=== PATIENT | female | born 1950 | race Caucasian/White ===

== ENCOUNTER 2017-02-17 11:24 | Inpatient (IN) | payer MEDICARE ==
[~2017-02-17] VITALS: Ht 162.6 cm; Wt 91.5 kg
[2017-02-17] VITALS (11 sets, daily range): BP systolic 132–187; BP diastolic 64–116; PULSE 74–148; RESP 12–21; O2SAT 96–99
--- NOTE | 2017-02-17 12:21 | ED.REPORT ---
HPI-Chest Pain 40 and Over Date of Service Feb 17, 2017 ED Provider: Luis Antonio Godoy MD 67 y/o female with a hx of hypertension and alcohol abuse presents to the ED due to tachycardia discovered at a PCP appointment today. The patient had an appointment with her PCP Dr. Jimenez at [facility] today who advised her to go to the emergency department because of her tachycardia. They performed an EKG which showed atrial fib/flutter. The patient has no known history of atrial fibrillation or flutter. She is asymptomatic at this time and specifically denies chest pain, shortness of breath, and heart palpitations. As per the pt's friend, the pt is an alcoholic and has not been taking her medications. She has also not left her house for a few days. She states she takes one medication but does not know what it is or what it is for. This was her first appointment with this PCP. Nursing Notes Stated Complaint: POSS HIGH BLOOD PRESSURE/HEART RATE Chief Complaint: Dysrhythmia/Cardiac Nursing Notes Reviewed: Yes Allergies: Coded Allergies: codeine (Verified Allergy, Mild, ITCH, 02/17/17) Scheduled Citalopram (Citalopram) 20 Mg Tablet 20 MG PO DAILY Lisinopril (Lisinopril) 40 Mg Tablet 40 MG PO DAILY General Time Seen by MD: 12:20 Chief Complaint Other (Sent in by her PCP for tachycardia) Hx Obtained From: Patient Arrived By: Walk-in Sudden in Onset?: No Onset Occurred: Onset unknown Severity: Current: No pain currently Severity: Maximum: No pain Recent Healthcare: Recent doctor visit Similar Sx Previous: No Past Medical History Past Medical History Right breast calcification Benign colon polyp Past Surgical History Endoscopy Smoking History Unknown if Ever Smoker Social History Alcohol abuse per her friends Other Social History: Good social support Ambulatory Status Independent Review of Systems Respiratory: Denies: Shortness of breath Cardiovascular: Denies: Chest pain, Palpitations Complete sys rev & neg: except as marked. Physical Exam Initial Vital Signs Vital Signs (First) Date Time Temp Pulse Resp B/P Pulse Ox O2 Delivery O2 Flow Rate FiO2 02/17/17 11:47 36.6 148 16 187/116 97 Room Air Initial VS: Reviewed, Vital signs abnormal Head / Eyes: Atraumatic, Normocephalic, PERRL ENT: Mucous membranes moist, Conjunctiva normal, No scleral icterus Neck: Supple, Full range of motion Extremities: Vascular intact, Neuro intact, No swelling, No tenderness Skin: Warm, Dry, No cyanosis Neurologic: Alert, Oriented, Nonfocal Psychiatric: Mood/affect normal, Behavior normal, Normal thought content General/Constitutional: Awake, Alert, No acute distress, Well appearing, Cooperative, Not toxic appearing Respiratory / Chest: Atraumatic, Breath sounds NL, Breath sounds = bilat, No respiratory distress, No rales, No rhonchi, No wheezing, No retractions Cardiovascular: Regular rhythm, Heart sounds NL, No murmurs Heart Rate / Rhythm: Positive: Tachycardia No lower extremity edema. Abdomen: Atraumatic, Soft, Non-tender Interpretation & Diagnostics Lab Results Interpretation Result Diagram: 02/17/17 1220 02/17/17 1220 Test 02/17/17 12:20 White Blood Count 5.1th/mm3 (3.8-10.1) Red Blood Count 3.05mil/mm3 (3.90-5.20) Hemoglobin 11.7g/dL (12.0-15.6) Hematocrit 34.7% (35.0-46.0) Mean Corpuscular Volume 113.8fL (81-100) Mean Corpuscular Hemoglobin 38.4pg (27.0-35.0) Mean Corpuscular Hemoglobin Concent 33.7% (32.0-37.0) Red Cell Distribution Width 13.6% (12.3-15.4) Platelet Count 168bil/L (150-400) Neutrophils (%) (Auto) 63.4% (40-74) Lymphocytes (%) (Auto) 18.8% (14-46) Monocytes (%) (Auto) 14.2% (4-12) Eosinophils (%) (Auto) 0.8% (0-5) Basophils (%) (Auto) 1.2% (0-3) D-Dimer 0.69mg/L FEU (<0.50) Sodium Level 142mEq/L (134-144) Potassium Level 3.9mEq/L (3.5-5.2) Chloride Level 101mEq/L (97-108) Carbon Dioxide Level 22mmol/L (18-29) Blood Urea Nitrogen 16mg/dL (8-27) Creatinine 0.68mg/dL (0.57-1.00) Estimat Glomerular Filtration Rate 123mL/min (>59) Glucose Level 130mg/dL (60-99) Calcium Level 9.7mg/dL (8.5-10.1) Magnesium Level 1.0mg/dL (1.6-2.6) Total Bilirubin 0.6mg/dL (0.0-1.2) Aspartate Amino Transf (AST/SGOT) 189U/L (0-50) Alanine Aminotransferase (ALT/SGPT) 131U/L (0-32) Alkaline Phosphatase 96U/L (25-165) Troponin T < 0.010ug/L (0.0-0.011) Total Protein 7.1g/dL (6.4-8.4) Albumin 4.4g/dL (3.4-5.0) ECG Interpretation ECG Interpretation: Atrial fibrillation with RVR, Rate 148 Time: 12:08 Interpreted by: ED physician Normal ECG Interpretation: No acute ischemic changes X-Ray Chest Interpretation Chest Xray Interpretation: IMPRESSION: No acute process. Dictated by: Deysi Kelley M.D. on 02/17/2017 at 13:36 Approved by: Deysi Kelley M.D. on 02/17/2017 at 13:36 View: Portable, 1 view Interpretation / Wet Read by: Interpret - Radiologist CT Chest Interpretation IMPRESSION: 1. No pulmonary emboli. 2. No acute cardiopulmonary process is evident. No pneumonia. 3. Mild prominence of the wall the distal esophagus may be exaggerated by incomplete distention. However, in the correct clinical setting, this may represent mild distal esophagitis related to a small hiatal hernia. 4. Cholelithiasis. The common bile duct is enlarged, measuring up to 10 mm in diameter. The need for MRCP to better evaluate the common bile duct may be determined clinically. 5. 1.1 cm distal splenic artery aneurysm is of doubtful significance. Dictated by: Justo Simms M.D. on 02/17/2017 at 13:29 Approved by: Justo Simms M.D. on 02/17/2017 at 13:42 Study type: CT pulm angiogram Interpretation / Wet Read by: Interpret - Radiologist Re-Eval/Medical Decision Med Decision/Clinical Course 67-year-old female history of alcohol abuse presenting with atrial fibrillation with RVR. She drinks 2-3 vodkas a day. He goes through 1 pint every 3 days. Was sent over by primary doctor for rapid heart rate. She is found to be in atrial flutter with RVR 150s. She was given several doses of diltiazem which improved her heart rate to 120s. She required a diltiazem drip to stabilize her heart rate less than 110. D-dimer was elevated. CT Angio chest showed no PE but did show common bile duct dilatation 10 mm. She has no LFT elevation or abdominal pain. We will admit to hospitalist service, PCC for diltiazem drip. She also has no known history of atrial fibrillation therefore this is a new diagnosis. I did not cardiovert her as she is not on anticoagulation and unclear how long she has been in atrial fibrillation as she reports being asymptomatic. Source of Hx: Old records Time of Eval: 15:16 Re-Evaluation/Progress Note: Pt rechecked. Pt informed of need for admission. Pt understands and agrees with plan for admission. All questions addressed. Consultation : Referral / Consult Name: Nick Coleman MD Consulted With: Hospitalist Call Returned at: 16:23 Grinder Gear: Will see patient, Agrees with eval, Agrees with plan, Accepts admit Counseled Regarding: Diagnosis, Lab results, Need for admission Discharge & Departure Primary Impression: Atrial fibrillation with RVR Additional Impressions: Hypomagnesemia Alcohol abuse Cholelithiasis Splenic artery aneurysm Disposition: ADMITTED TO HOSPITAL Discharge Condition All VS Reviewed: Yes Condition: Stable Referrals: Reji Jimenez DO Crit Care Except Billable Proc Time Spent: 75-104 minutes Services Performed: Patient management by me, Time spent at bedside, Reviewing test results, Reviewing imaging, Discussing patient care, Documentation in record Critical Care Notes: See MDM. 90 minutes critical care. Scribe Attestation Portions of this note were transcribed by Lianet Rivera and Jose Luis Mcginnis. I, , personally performed the history, physical exam and medical decision-making;I reviewed and confirmed the accuracy of the information in the transcribed note. Signed by Lianet Rivera and Jose Luis Mcginnis, Scribe. 02/17/17 1500 copies to: Reji Jimenez Ben M MD Feb 17, 2017 12:21 Lianet Rivera Feb 17, 2017 12:28 JOSE LUIS MCGINNIS Feb 17, 2017 15:07
[2017-02-17] MEDS ORDERED: Diltiazem 5 mg/mL 5 mL Inj IVPUSH ONE ×2 (12:30→13:05)
[2017-02-17 12:35] LABS: BASOPHILS % (AUTO) 1.2 % (0-3); EOSINOPHILS % (AUTO) 0.8 % (0-5); MONOCYTES % (AUTO) 14.2 % (4-12); Mean Corpuscular Hemoglobin 38.4 pg (27.0-35.0); Mean Corpuscular Volume 113.8 fL (81-100); NEUTROPHILS % (AUTO) 63.4 % (40-74); Platelet Count 168 bil/L (150-400)
[2017-02-17] MEDS ORDERED: 0.9% Sodium Chloride 1,000 ML IV ONE (12:35)
[2017-02-17 13:19] LABS: TROPONIN T < 0.010 ug/L (0.0-0.011)
--- NOTE | 2017-02-17 13:37 | DRSVH ---
PROCEDURE: X-RAY CHEST ONE VIEW, PORTABLE ([id number]) INDICATIONS: rapid heartrate , chest painy TECHNIQUE: One view of the chest was acquired. COMPARISON: None. FINDINGS: Surgical changes and devices: None. Lungs and pleura: No pleural effusions or pneumothorax. Lungs are clear. Mediastinum: Mediastinal contours appear normal. Heart size is normal. Bones and chest wall: No suspicious bony lesions. Overlying soft tissues appear unremarkable. IMPRESSION: No acute process. Dictated by: Deysi Kelley M.D. on 02/17/2017 at 13:36 Approved by: Deysi Kelley M.D. on 02/17/2017 at 13:36
--- NOTE | 2017-02-17 14:44 | DRSVH ---
PROCEDURE: CT ANGIO CHEST PULMONARY EMBOLISM ([id number]) INDICATIONS: tachycardia elevated ddimer TECHNIQUE: After the administration of intravenous contrast, 2 mm thick sections acquired from the pulmonary api juju to the posterior costophrenic angles. 3-dimensional maximum intensity projection (MIP) coronal a nd sagittal reformats were then acquired through the thorax. For radiation dose reduction, the follo wing was used: automated exposure control, adjustment of mA and/or kV according to patient size. COMPARISON: None. FINDINGS: Image quality: Excellent. Pulmonary arteries: Pulmonary arteries are normal in size, and demonstrate no intraluminal filling d efects to suggest central pulmonary embolism. Lungs and pleura: Expiratory technique does result in difficulty evaluating the lungs for subtle abno rmalities. However, no focal consolidation, effusion, or pneumothorax is evident. There is mild bas ilar atelectasis. There may be scarring within the lung apices and in the inferior margin of the rig ht middle lobe and lingula. No lung masses are identified. Evaluation for pulmonary nodules is limi augie on this exam. No large pulmonary nodules are evident. Mediastinum: Heart size is normal, without pericardial effusion. No mediastinal or hilar adenopathy . Thoracic aorta is normal in caliber and enhancement. Mild prominence of the wall of the distal es ophagus is present. There is a small hiatal hernia. Coronary artery atherosclerosis is present. Th ere also is aortic atherosclerosis. Bones and chest wall: No suspicious bony lesions. Ribs and thoracic spine appear intact throughout. Thyroid gland is not adequately evaluated. No axillary or supraclavicular adenopathy. Abdomen: Included portions of the upper abdomen demonstrate a 1.1 cm saccular-type splenic artery ane urysm within the region of the splenic hilum (image 120, series 5), which is peripherally calcified. Additional enlargement of the distal splenic artery also is noted (image 131, series 5). Numerous ga llstones are present within the gallbladder. There is enlargement of the common bile duct, measuring up to 10 mm in diameter. The liver has a somewhat nodular appearance to the surface, not adequately evaluated. There is slight prominence of the left adrenal gland without a focal nodule. IMPRESSION: 1. No pulmonary emboli. 2. No acute cardiopulmonary process is evident. No pneumonia. 3. Mild prominence of the wall the distal esophagus may be exaggerated by incomplete distention. Ho wever, in the correct clinical setting, this may represent mild distal esophagitis related to a small hiatal hernia. 4. Cholelithiasis. The common bile duct is enlarged, measuring up to 10 mm in diameter. The need f or MRCP to better evaluate the common bile duct may be determined clinically. 5. 1.1 cm distal splenic artery aneurysm is of doubtful significance. Dictated by: Justo Simms M.D. on 02/17/2017 at 13:29 Approved by: Justo Simms M.D. on 02/17/2017 at 13:42
[2017-02-17] MEDS ORDERED: Diltiazem Inj 125 MG in Dextrose 5% 100 ML IV SCH (14:52)
--- NOTE | 2017-02-17 15:48 | NUR ---
MEDREC Pt does not know what medications she takes, stating "i just open cupboards and whatever is there, i take it". Her friend has offered to go home and bring pill containers. Per friends, pt also has an alcohol problem and most likely does not taker her medications regularly, as prescribed. Please complete medrec when pt's friend returns with pills or call "Admit Nurse" on [employer].
[2017-02-17] MEDS ORDERED: Ondansetron 2 mg/mL 2 mL Inj IVPUSH PRN ×2 (16:25→18:40)
[2017-02-17] MEDS ORDERED: Alum-Mag Hydrox-Simeth 30 mL Suspension PO PRN ×2 (16:25→18:40)
[2017-02-17] MEDS ORDERED: Magnesium Sulf 4 Gm/100 mL H2O 4 GM in IV Premix 1 EACH IV ONE (16:30)
[2017-02-17] MEDS ORDERED: CITA20TA11 PO (16:56)
[2017-02-17] MEDS ORDERED: LISI40TA PO (16:56)
[2017-02-17] MEDS ORDERED: [UNRECOGNIZED DRUG - CODE] PO (18:36)
[2017-02-17] MEDS ORDERED: METF500T4 PO (18:37)
[2017-02-17] MEDS ORDERED: FISH1CAP15 PO (18:38)
[2017-02-17] MEDS ORDERED: Diltiazem CD 120 mg ER24 Capsule PO ONE (18:40)
[2017-02-17] MEDS ORDERED: Polyethylene Glycol (PEG) 17 Gm Powder PO PRN (18:40)
[2017-02-17] MEDS: Diltiazem Inj 125 MG in 0.9% Sodium Chloride 100 ML, Pharmacy To Mix 1 EA IV SCH ×2 (18:40→23:51)
[2017-02-17] MEDS ORDERED: Glucose 40% Oral Gel 15 Gm Tube PO PRN (18:40)
--- NOTE | 2017-02-17 18:54 | PCM.HPMED ---
Subjective Date of Service Feb 17, 2017 Primary Provider: Admitting Physician: Nick Coleman MD Primary Care Physician: Reji Jimenez DO Attending Physician: Nick Coleman MD Admit Status: From the Emergency Department, 23-Hour Observation, Admit to [facility], [facility] Telemetry Chief Complaint: Palpitations, atrial fibrillation with rapid ventricular response History of Present Illness: This is a 1-year-old woman with history of alcohol abuse who is having palpitations and some cognitive decline. She presented to her doctor's office was found to be in atrial fibrillation with RVR. She was sent to the ER. She does know what year it is but since April. She denies recent falls or trauma or injury to her head. She has been living alone for about the last year since her was placed in an assisted living facility. Her friend attest that she sees her house in quite a bit of disarray and that the patient fact walks very little. She is also drinking vodka probably up to a half a fifth every day. She is now routinely drinking vodka with some mornings as well. The patient denied this to me but does note that she drinks on a daily basis. She also denies a history of withdrawal but her neighbor notes that she does get the shakes and sometimes throws up. Any chest pain. She also denies any role change of her breathing other than some mild dyspnea on exertion. She does have mild pedal edema but this is not new. She has no clear cardiac history. In fact she denies any medical history over friend brings in lisinopril, citalopram, and metformin as well as hydrocodone. The patient denies taking blood pressure or diabetes medications or having these problems. Review of Systems: She denies headache, visual changes. She does note some memory problems. No neck or back pain. No difficulty with diarrhea constipation blood proctectomy matured history of fevers or chills. Also reviewed and otherwise negative except as noted in history of present illness. Allergies Coded Allergies: codeine (Verified Allergy, Mild, ITCH, 02/17/17) Home Medications Lisinopril 40 mg daily, metformin 500 mg twice a day, hydrocodone when necessary , citalopram 20 mg daily. Metformin looks like it was filled last a year ago. PMH She denies any past medical history. Past medical history includes 1 alcohol abuse and dependence 2. Probable diabetes mellitus 2 3. Hypertension 4. Possible depression Surgical History Unknown Family History She can not provide Social History Hx Alcohol Use: Yes Alcoholic Drinks Per Day: vodka daily, hx of w/drawal s-ms Hx Substance Use: No (denies) Smoking Status: Unknown if Ever Smoker Living Arrangement: Alone Exam Vital Signs Vital Sign - Last Date Time Temp Pulse Resp B/P Pulse Ox O2 Delivery O2 Flow Rate FiO2 02/17/17 18:37 36.6 105 21 146/64 97 Room Air [address] and year but not month. No distress. Fluent speech. Normal affect. Normal skull. Normal nose and ears. Anicteric sclera, symmetric pupils Oropharynx is unremarkable, no facial droop. Neck is supple, normal thyroid. No adenopathy. Lungs are clear, normal effort rate. Heart is irregular without murmur gallop or rub. She is tachycardic with a rate in the 120s Abdomen soft, nondistended or tender. Extremities are free of pedal edema. Good radial and pedal pulses. Skin is free of rash, lesions. No petechiae or ecchymosis. Joints are grossly normal. Cranial nerves are grossly normal. Motor strength is normal in all extremities. Normal muscular tone. Lab and Diagnostics Result Diagram: 02/17/17 1220 02/17/17 1220 X-Rays, CTs and MRIs CT chest angiogram is basically negative. Chest x-ray was unremarkable. Assessment & Plan 1. Atrial fibrillation with rapid ventricular response, POA. Diltiazem drip with an oral load. We will start aspirin. 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 2. Alcohol dependence and abuse, POA. She appears to be at high risk for withdrawal. We will place her on that I will call call protocol with thiamine repletion. 3. Probable untreated hypertension, POA. Resume lisinopril at 20 mg a day and then titrated up. 4. Probable diabetes mellitus 2, with medication noncompliance. POA. Partial lispro, A1c. The patient is full resuscitation this was discussed today she is also intubation for level of care. She is admitted observation status at this point with 1 night stay anticipated. This may change given her probability or possibility of alcoholic fall. Pain Evaluation: Adequate Pain Control Resuscitation Status: CPR: Attempt Resuscitation Time spent 40 minutes Nick Coleman MD Feb 17, 2017 18:54
[2017-02-17] MEDS: 0.9% Sodium Chloride 1,000 ML IV SCH (19:34)
[2017-02-17] MEDS: Heparin 5,000 Unit/mL Inj SUBQ SCH (20:45)
[2017-02-17] MEDS: Multivit-Miner-Folic Acid-Iron Tablet PO SCH (20:46)
[2017-02-17] MEDS: Insulin LISPRO 300 Unit/3 mL Inj SUBQ SCH (22:00)
[2017-02-18] MEDS: Heparin 5,000 Unit/mL Inj SUBQ SCH ×3 (00:30→16:35)
[2017-02-18 02:58] LABS: BASOPHILS % (AUTO) 0.9 % (0-3); EOSINOPHILS % (AUTO) 4.5 % (0-5); MONOCYTES % (AUTO) 15.3 % (4-12); Mean Corpuscular Hemoglobin 37.9 pg (27.0-35.0); Mean Corpuscular Volume 115.4 fL (81-100); NEUTROPHILS % (AUTO) 40.8 % (40-74); Platelet Count 145 bil/L (150-400)
[2017-02-18 03:17] VITALS: BP 111/68; PULSE 64; RESP 13; O2SAT 98
[2017-02-18] MEDS: 0.9% Sodium Chloride 1,000 ML IV SCH ×2 (05:38→14:40)
[2017-02-18 07:52] VITALS: PULSE 71
[2017-02-18] MEDS: Insulin LISPRO 300 Unit/3 mL Inj SUBQ SCH (08:00)
[2017-02-18 08:20] VITALS: BP 148/76; PULSE 86; RESP 17; O2SAT 98
[2017-02-18] MEDS: Multivit-Miner-Folic Acid-Iron Tablet PO SCH (08:35)
[2017-02-18] MEDS: Thiamine Inj 100 MG in 0.9% Sodium Chloride 100 ML IV SCH (08:39)
[2017-02-18] MEDS ORDERED: Diltiazem CD 180 mg ER24 Capsule PO ONE (10:15)
--- NOTE | 2017-02-18 10:15 | PCM.PNMED ---
Subjective Date of Service Feb 18, 2017 Subjective No chest pain, palpitations, or dyspnea. No nausea, diarrhea or abdominal pain. No confusion. Mildly shaky. No anxiety. Some diaphoresis. Exam Vital Signs Vital Sign - Last Date Time Temp Pulse Resp B/P Pulse Ox O2 Delivery O2 Flow Rate FiO2 02/18/17 08:20 37.1 86 17 148/76 98 Room Air 02/17/17 18:37 3 Intake and Output 02/17/17 02/17/17 02/18/17 Cumulative From/Thru 15:00 23:00 07:00 02/17/17 11:47 - 02/18/17 06:48 Intake Total 1000 ml 95 ml 1392 ml 2487 ml Output Total 975 ml 975 ml Balance 1000 ml 95 ml 417 ml 1512 ml Intake Oral 200 ml 200 ml IV Total 1000 ml 95 ml 1192 ml 2287 ml Output Urine Total 975 ml 975 ml # Voids 2 2 Exam Alert and oriented -3, no distress. Fluent speech Anicteric sclera. Lungs are clear with normal rate and effort Heart is irregular without murmur gallop or rub Abdomen soft nontender, flat Extremities are free of edema. Skin is free of rash or lesions. Mild tremor IVs and Medications Medications Reviewed: Medications were reviewed in detail Lab and Diagnostics Result Diagram: 02/18/17 0241 02/18/17 0241 X-Rays, CTs and MRIs CT chest angiogram is basically negative. Chest x-ray was unremarkable. Assessment & Plan 1. Atrial fibrillation with rapid ventricular response, POA. Diltiazem drip with an oral load. We will start aspirin. 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 We will increase her dose of oral diltiazem today and try to wean the drip off. The question here is whether or not she is a candidate for anticoagulants given her history of alcohol abuse and gait instability. We will review her echo discussed with cardiology. We will plan on using a 24 hours to get her rate under control on oral agents. 2. Alcohol dependence and abuse, POA. He appears to be going to mild to moderate alcohol withdrawal. She is mostly manifesting with diaphoresis and tremor. We will continue to observe and use the alcohol protocol. 3. Probable untreated hypertension, POA. Resume lisinopril at 20 mg a day and then titrated up. 4. Probable diabetes mellitus 2, with medication noncompliance. POA. Her A1c is actually 4.8. We will discontinue her insulin at this time. The patient is full resuscitation this was discussed today she is also intubation for level of care. We will require longer than 2 nights will make her inpatient status at this point. Resuscitation Status: CPR: Attempt Resuscitation Nick Coleman MD Feb 18, 2017 10:15
--- NOTE | 2017-02-18 10:22 | NUR ---
Case Management: [facility] delivered and charted @ 1005. Signed original placed in chart. Copy left at bedside. Berenice Wilkins RN
--- NOTE | 2017-02-18 10:44 | DRSVH ---
[facility] [address] [place] [address] Echocardiogram Report Name: MADELEINE JEROME PStudy Date: Height: 64 in Hospital Exam Location: [facility] Weight: 419 lb Gender: Female BSA: 2.7 m2 : 1950 Age: 67 yrs BP: 111/68 mmHg Reason For Study: AFIB Ordering Physician: HOSPITALIST LATHAerformed By: Ghassan العلي Referring Physician: Noel WILLINGHAM Interpretation Summary The patient was in atrial fibrillation with controlled ventricular rate during the exam. Normal left ventricle size with ejection fraction 60-65%. Mildly dilated left atrium. Moderate tricuspid regurgitation. The right ventricular systolic pressure is estimated at 33 mmHg assuming a right atrial pressure of 3 mm Hg. Procedure: A two-dimensional transthoracic echocardiogram with color flow and Doppler was performed. The study quality was technically good. There is no prior echocardiogram noted for this patient. The patient was in atrial fibrillation with controlled ventricular rate during the exam. The patient had a heart rate of 88-97 beats per minute. Left Ventricle: The left ventricle is normal in size. There is normal left ventricular wall thickness. The ejection fraction is estimated to be 60-65%. There are no focal wall motion abnormalities. Diastolic function could not be accurately assessed due to atrial fibrillation. Right Ventricle: The right ventricle is normal in size and function. Atria: The left atrium is mildly dilated. Right atrial size is normal. The interatrial septum is intact with no evidence for an atrial septal defect. Mitral Valve: The mitral valve is normal in structure and function. There is trace mitral regurgitation. Aortic Valve: The aortic valve is normal in structure and function. The aortic valve is trileaflet. The aortic valve opens well. No aortic regurgitation is present. Tricuspid Valve: The tricuspid valve is normal in structure and function. There is moderate tricuspid regurgitation. The right ventricular systolic pressure is estimated at 33 mmHg assuming a right atrial pressure of 3 mm Hg. Pulmonic Valve: The pulmonic valve is not well seen, but is grossly normal. There is no pulmonic valvular regurgitation. Great Vessels: The aortic root is normal size. The dimensions of the ascending aorta are normal. The pulmonary artery is normal size. The IVC is of normal diameter and collapses greater than 50% with a sniff. This suggests a low right atrial pressure of 3 mm Hg. Pericardium/ Pleura There is no pericardial effusion. There is no pleural effusion. MMode/2D Measurements & Calculations LVIDd: 5.1 cm LA dimension: 4.6 cm RA long axis Ao root diam LVIDs: 3.1 cm FS: 38.8 % LA A2 area: 26.4 cm RA area Aortic Jxn: 2.4 cm EPSS: 0.27 cm LA A4 area: 25.9 cm asc Aorta Diam IVSd: 1.1 cm LA length (vol) : 15.1 cm LVPWd: 0.87 cm RA vol Ao Arch Diam (Prox LA vol: 87.6 ml : 38.6 ml Trans): 2.5 cm LA vol index RA : 14.4 mm2 IVC diam: 2.3 cm LV kearns. diameter/BSA LV sys. diameter/BSA (cm/m^2): 1.9 (cm/m^2): 1.2 Doppler Measurements & Calculations Ao V2 max MV E max stevo MV E/A: 256.5 TR max stevo : 134.7 cm/sec : 120.2 cm/sec Med Peak E' Stevo : 275.7 cm/sec Ao max PG MV A max stevo TR max PG : 7.3 mmHg : 0.47 cm/sec E/E' med: 12.1 : 30.4 mmHg Ao mean PG PA V2 max : 4.3 mmHg : 89.2 cm/sec PA mean PG PA Accel Time : 0.10 sec MV dec time Ao V2 mean PA V2 mean : 0.10 sec : 99.0 cm/sec : 67.3 cm/sec Ao V2 VTI: 25.1 cm DANNY pr(Accel) : 31.5 mmHg Electronically signed by: Janell Irby on Reading Physician:02/18/2017 10:43 AM
--- NOTE | 2017-02-18 12:04 | NUR ---
Social Work: Initial Assessment/Chemical Dependency Eval. D: Per EMR review, pt is a 67 year old female admitted for AFIB with RVR. PCP is Reji Jimenez DO. NOK Is Jovanny Mauricio, brother, . Advanced directives not complete- info provided by HISTOTECHNICIAN. Readmit score is 4/8. HISTOTECHNICIAN met with pt at bedside. Sw role explained and contact info provided. See initial assessment. Pt lives on [address] in a single story home with 2 steps to enter. Pt lives alone, and is I with ADLs at baseline. Pt uses crutches at baseline and has no concerns about her ability to ambulate safely with them. Pt has never had HH or skilled rehab. Pt states her friend will transport her home. Pt was placed on CIWA Protocol during admission and reportedly consumed approximately 1/2 a fifth of vodka daily. HISTOTECHNICIAN discussed pt's ETOH consumptions. Pt states that she does drink regularly but does not feel it to be problematic. Pt does not see how large quantities of ETOH can impact her health. Pt states hat she uses ETOH for sleep purposes and that she has never experienced any withdrawal symptoms. Pt declined CD resources from HISTOTECHNICIAN and decline CDP bedside assessment. A: Pt who is I at baseline. P: Anticipate pt to discharge home when medically stable; HISTOTECHNICIAN to continue to follow if needs arise. KEON Camp Addendum: 02/18/17 at 1211 by TELLY KNIGHT SS Amended: Links added.
[2017-02-18 12:18] VITALS: BP 111/69; PULSE 94; RESP 20; O2SAT 98
[2017-02-18 16:13] VITALS: BP 126/82; PULSE 100; RESP 18; O2SAT 99
--- NOTE | 2017-02-18 16:44 | NUR ---
DC Diltiazem Drip/CIWA Pt. has been off diltiazem drip this afternoon at ~1300 after administering 180mg PO diltiazem per MD orders. Pts. HR has been int he 90s-100s with no c/o CP. Pt. also denies SOB. CIWA scores have been 5, 1, and 1 this sift. Pt. has slight trembling of right arm when extended and at times perspiration on Pts. forehead is also noted. Pt. denies anxiety, hearing or seeing things as well as feeling any itchiness or crawling on her skin. Pt. at this time is bed in no apparent distress with family and friends around.
[2017-02-18 21:30] VITALS: BP 126/78; PULSE 96; RESP 18; O2SAT 98
[2017-02-19] VITALS (7 sets, daily range): BP systolic 129–157; BP diastolic 76–90; PULSE 93–129; RESP 13–17; O2SAT 97–100
[2017-02-19] MEDS: 0.9% Sodium Chloride 1,000 ML IV SCH (00:40)
[2017-02-19] MEDS: Heparin 5,000 Unit/mL Inj SUBQ SCH ×2 (00:45→09:40)
--- NOTE | 2017-02-19 05:15 | NUR ---
HEPARIN / CIWA Patient refusing to have heparin sq injections in abdomen; requesting they be injected in the arm. CIWA score 4 for slight tremors.
[2017-02-19 08:11] LABS: Free Thyroxine Index 1.8 (1.2-4.9); Thyroxine (T4) 5.7 ug/dL (4.5-12.0)
[2017-02-19] MEDS ORDERED: Diltiazem CD 180 mg ER24 Capsule PO SCH (08:30)
[2017-02-19] MEDS: Thiamine Inj 100 MG in 0.9% Sodium Chloride 100 ML IV SCH (09:40)
--- NOTE | 2017-02-19 11:49 | PCM.DIMED ---
Discharge Instructions Date of Service Feb 19, 2017 Dates of Hospitalization Feb 17, 2017 at 16:29 Discharge Diagnosis Discharge Diagnosis 1. Atrial fibrillation with rapid ventricular response, improved. 2. Alcohol dependence . 3. Hypertension. Diet Heart Healthy Activity Limited until seen by PCP Call your provider Shortness of breath, Chest pain Patient Instructions Follow-up Provider: Reji Jimenez DO Follow-up with PCP in: 1 week Nick Coleman MD Feb 19, 2017 11:49
[2017-02-19] MEDS ORDERED: RIVA20TA PO (11:54)
[2017-02-19] MEDS ORDERED: DILT240C89 PO (11:54)
[2017-02-19] MEDS ORDERED: MAGN500T PO (12:18)
--- NOTE | 2017-02-19 12:39 | PCM.DC.MED ---
Discharge Summary Date of Service Feb 19, 2017 Dates of Hospitalization Date of Hospital Admission Feb 17, 2017 at 16:29 Date of Discharge: Feb 19, 2017 Providers: Admitting Physician: Diego Zhou MD Primary Care Physician: Reji Jimenez DO Attending Physician: Diego Zhou MD Diagnosis at Time of Discharge Diagnosis at Time of Discharge 1. Atrial fibrillation with rapid ventricular response, improved. 2. Alcohol dependence . 3. Hypertension. Consultations None Procedures XRay, CTs & MRIs CT chest angiogram is basically negative. Chest x-ray was unremarkable. ECG 12 Lead Atrial fibrillation with rapid ventricular response Cardiac Echo Impression Interpretation Summary The patient was in atrial fibrillation with controlled ventricular rate during the exam. Normal left ventricle size with ejection fraction 60-65%. Mildly dilated left atrium. Moderate tricuspid regurgitation. The right ventricular systolic pressure is estimated at 33 mmHg assuming a right atrial pressure of 3 mm Hg. Invasive Procedures None Brief History This is a 1-year-old woman with history of alcohol abuse who is having palpitations and some cognitive decline. She presented to her doctor's office was found to be in atrial fibrillation with RVR. She was sent to the ER. She does know what year it is but since April. She denies recent falls or trauma or injury to her head. She has been living alone for about the last year since her was placed in an assisted living facility. Her friend attest that she sees her house in quite a bit of disarray and that the patient fact walks very little. She is also drinking vodka probably up to a half a fifth every day. She is now routinely drinking vodka with some mornings as well. The patient denied this to me but does note that she drinks on a daily basis. She also denies a history of withdrawal but her neighbor notes that she does get the shakes and sometimes throws up. Any chest pain. She also denies any role change of her breathing other than some mild dyspnea on exertion. She does have mild pedal edema but this is not new. She has no clear cardiac history. In fact she denies any medical history over friend brings in lisinopril, citalopram, and metformin as well as hydrocodone. The patient denies taking blood pressure or diabetes medications or having these problems. Hospital Course 1. Atrial fibrillation with rapid ventricular response, POA. Diltiazem drip with an oral load. We will start aspirin. 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 We will increase her dose of oral diltiazem today and try to wean the drip off. The question here is whether or not she is a candidate for anticoagulants given her history of alcohol abuse and gait instability. We will review her echo discussed with cardiology. We will plan on using a 24 hours to get her rate under control on oral agents. The patient had a fairly unremarkable echo. She was rate controlled with diltiazem drip and then converted to by mouth with reasonable rate control. She was a candidate for anticoagulation based on hypertension and age. The risks and benefits of anticoagulation with her history of alcohol abuse were discussed in detail with her. 2. Alcohol dependence and abuse, POA. He appears to be going to mild to moderate alcohol withdrawal. She is mostly manifesting with diaphoresis and tremor. We will continue to observe and use the alcohol protocol. Importance of alcohol cessation was discussed on a daily basis with her and she does indicate a willingness to stop. 3. Probable untreated hypertension, POA. Resume lisinopril at 20 mg a day and then titrated up. Ultimately diltiazem orally was increased to 40 mg. We will actually stop was sampled the time of discharge and see how her blood pressure fairs with the diltiazem which is primarily being used for rate control. 4. Probable diabetes mellitus 2, with medication noncompliance. POA. Her A1c is actually 4.8. We will discontinue her insulin at this time. Her A1c was less than 5.4. Her blood sugars were normal. She does not have diabetes. The patient is full resuscitation this was discussed today she is also intubation for level of care. We will require longer than 2 nights will make her inpatient status at this point. On the day of discharge the patient is adamant about returning home. She is relatively asymptomatic even with minor minor bursts of tachycardia. She has limited physical activity at home and some social support and is quite adamant about going home today but will follow-up early next week with her primary care provider Exam Vital Signs (Last) Date Time Temp Pulse Resp B/P Pulse Ox O2 Delivery O2 Flow Rate FiO2 02/19/17 11:23 37.0 97 16 142/87 98 Room Air 02/17/17 18:37 3 Exam Patient was seen and examined on the day of discharge Test 02/17/17 12:20 02/18/17 02:41 02/18/17 18:00 D-Dimer 0.69mg/L FEU (<0.50) Hemoglobin A1c 4.8% (4.8-5.6) Troponin T < 0.010ug/L (0.0-0.011) White Blood Count 4.3th/mm3 (3.8-10.1) Red Blood Count 2.72mil/mm3 (3.90-5.20) Hemoglobin 10.3g/dL (12.0-15.6) Hematocrit 31.4% (35.0-46.0) Mean Corpuscular Volume 115.4fL (81-100) Mean Corpuscular Hemoglobin 37.9pg (27.0-35.0) Mean Corpuscular Hemoglobin Concent 32.8% (32.0-37.0) Red Cell Distribution Width 13.6% (12.3-15.4) Platelet Count 145bil/L (150-400) Neutrophils (%) (Auto) 40.8% (40-74) Lymphocytes (%) (Auto) 37.6% (14-46) Monocytes (%) (Auto) 15.3% (4-12) Eosinophils (%) (Auto) 4.5% (0-5) Basophils (%) (Auto) 0.9% (0-3) Sodium Level 143mEq/L (134-144) Potassium Level 3.6mEq/L (3.5-5.2) Chloride Level 104mEq/L (97-108) Carbon Dioxide Level 24mmol/L (18-29) Blood Urea Nitrogen 14mg/dL (8-27) Creatinine 0.59mg/dL (0.57-1.00) Estimat Glomerular Filtration Rate 145mL/min (>59) Glucose Level 107mg/dL (60-99) Calcium Level 9.2mg/dL (8.5-10.1) Magnesium Level 2.0mg/dL (1.6-2.6) Total Bilirubin 0.6mg/dL (0.0-1.2) Aspartate Amino Transf (AST/SGOT) 117U/L (0-50) Alanine Aminotransferase (ALT/SGPT) 96U/L (0-32) Alkaline Phosphatase 79U/L (25-165) Total Protein 5.7g/dL (6.4-8.4) Albumin 3.7g/dL (3.4-5.0) Triglycerides Level 72mg/dL (0-149) Cholesterol Level 175mg/dL (100-199) LDL Cholesterol, Calculated 97.600mg/dL (0-99) VLDL Cholesterol 14.400mg/dL HDL Cholesterol 63mg/dL (>39) Cholesterol/HDL Ratio 2.78 (0.0-4.4) Thyroid Stimulating Hormone (TSH) 0.867uIU/mL (0.450-4.500) Free Thyroxine Index 1.8 (1.2-4.9) Thyroxine (T4) 5.7ug/dL (4.5-12.0) Triiodothyronine (T3) Uptake 31% (24-39) Hold Urine Received (Received) Discharge Medications Discharge Medications Citalopram (Citalopram) 20 Mg Tablet 20 MG PO DAILY (Reported) Diltiazem ER (Diltiazem ER) 240 Mg Cap.er.24h 240 MG PO DAILY Prescribed by: DIEGO ZHOU MD Fish Oil/Dha/Epa (Fish Oil 1,200 mg Fish Oil) 1 Each Capsule 1 EACH PO DAILY ( Reported) Magnesium Oxide (Magnesium Oxide) 500 Mg Tablet 500 MG PO DAILY Prescribed by: DIEGO ZHOU MD Rivaroxaban (Xarelto) 20 Mg Tablet 20 MG PO DAILY Prescribed by: DIEGO ZHOU MD As needed Hydrocodone/Acetaminophen (Lorcet 5-325 mg Tablet) 1 Each Tablet 1-2 EACH PO q4- 6h PRN PRN For Pain (Reported) Followup Plan Disposition: Home Discharge Diet: Heart Healthy Discharge Activity: Limited until seen by PCP Follow-up Provider: Reji Jimenez DO Follow-up with PCP in: 1 week Time spent 45 minutes Diego Zhou MD Feb 19, 2017 12:39
--- NOTE | 2017-02-19 12:42 | PCM.ADCARE ---
Advance Care Planning Note Purpose of Encounter: To discuss broad goals of care as well as resuscitation status. Parties in Attendance: Patient Decisional Capacity: She has decisional capacity Subjective: She is comfortable today, without any pain or other difficulties. She is anticipating discharge home. Objective: No distress with normal vital signs performed clear. Heart is irregular but rate controlled No peripheral edema Goals of Care Determinations: To further determine level of care as well as global goals of healthcare functional status. Plan: 1. The patient's primary goal is to preserve dignity and protein and resume a functional level of independent living. She also seems motivated to pursue alcohol cessation which is the primary problem in her life right now. CODE STATUS: Full resuscitation Intubation for airway support if needed. Full medical treatment for critical illness including ICU level care. Undecided about feeding tube Time Spent Adv.Care Plannin minutes Adv. Care Plan Documenation: As above Nick Coleman MD Feb 19, 2017 12:42
--- NOTE | 2017-02-19 13:20 | NUR ---
Discharge note Patient a/o x 4, denies pain, nausea or sob. Pateint oob amb in room with sba, silvia well. Tele A fib 90's at rest and 140's with activity. Patient asymptomatic with increased HR. IV SL and tele removed intact. Patient given discharge instructions, medication reconciliation, info on diagnosis and new meds and prescriptions. All questions answered. Patient taken to the car in her own wheelchair and belongings and discharged home with friend.
== END 2017-02-19 15:22 | disposition home or self-care (01) | DRG 309 ==
LOC: SED 11:24 → PCC 16:29 → OBSVTOIN 16:29 → INTOOBSV 16:29
PROVIDERS: ADMIT Hospitalist; ATTEND Hospitalist
DX: I48.91 Unspecified atrial fibrillation (principal); F10.239 Alcohol dependence with withdrawal, unspecified; I10 Essential (primary) hypertension; E11.9 Type 2 diabetes mellitus without complications

== ENCOUNTER 2017-03-30 14:15 | Inpatient (IN) | payer MEDICARE ==
[~2017-03-30] VITALS: Ht 162.6 cm; Wt 82.8 kg
[2017-03-30] VITALS (15 sets, daily range): BP systolic 115–158; BP diastolic 57–117; PULSE 93–144; RESP 14–20; O2SAT 94–98
[~2017-03-30 14:15] MED LIST: CITA20TA11 PO; DILT240C89 PO; FISH1CAP15 PO; MAGN500T PO; RIVA20TA PO; [UNRECOGNIZED DRUG - CODE] PO
--- NOTE | 2017-03-30 14:26 | ED.REPORT ---
HPI-Altered Mental Status Date of Service Mar 30, 2017 ED Provider: Dr. Booth Pt is a 67 year old female with a history of post-polio syndrome, A-fib, HTN, and potential DM who presents to the ED via EMS after being found unresponsive after a ground level fall less than 30 minutes ago. The pt was found on the floor after her shower. She was unable to identify who found her on the floor, but reported that she lives with her . The medics found her unresponsive and gave her 4 mg of Narcan, and 6mg (+12 mg) of Adenosine. Her heart rate was found to be in A-flutter with a rate of 180-280 bpm. 20 mg IV of Diltiazem was given, causing her heart rate to drop to 129. When the pt arrived at the ED, her heart rate was at 140. She denies chest pain, SOB, recent illness, and sensation to heart palpations. She admits to alcohol use, but denies drinking today. The pt was unable to identify what medications she takes and denies taking any narcotics, but hydrocodone was brought to the ED as one of her medications. She was recently admitted between February 17-2016 for rapid heart rate and was found to be in A-fib with RvR. She was placed on a diltiazem drip and successfully weaned off of this and discharged with oral Diltiazem. She was thought to NOT be a good candidate for anticoagulation due to her poor gait stability and alcoholism. She is a poor historian. Nursing Notes Stated Complaint: UNRESPONSIVE Chief Complaint: Dysrhythmia/Cardiac Nursing Notes Reviewed: Yes Allergies: Coded Allergies: codeine (Verified Allergy, Mild, ITCH, 03/30/17) Scheduled Aspirin Chew (Aspirin Chew) 81 Mg Chew 81 MG PO DAILY Citalopram (Citalopram) 20 Mg Tablet 20 MG PO DAILY Diltiazem ER (Diltiazem ER) 240 Mg Cap.er.24h 240 MG PO DAILY Doxycycline Hyclate (Doxycycline Hyclate) 20 Mg Tablet 20 MG PO DAILY Magnesium Oxide (Magnesium Oxide) 400 Mg Tablet 400 MG PO DAILY Scheduled PRN Hydrocodone/Acetaminophen (Lorcet 5-325 mg Tablet) 1 Each Tablet 1-2 EACH PO q4- 6h PRN PRN For Pain General Time Seen by MD: 14:25 Chief Complaint Other (Ground level fall) Hx Obtained From: Patient, EMS Arrived By: Ambulance Sudden in Onset?: Yes Onset Occurred: Just prior to arrival Symptom Duration: Duration unknown Severity: Current: No pain currently Severity: Maximum: No pain Recent Healthcare: Recent doctor visit Similar Sx Previous: Yes Past Medical History Past Medical History Right breast calcification Benign colon polyp Post polio syndrome Alcohol abuse and dependence Probable diabetes mellitus 2 - last A1C normal Hypertension Possible depression A-fib with hx of RvR Past Surgical History Endoscopy Smoking History Unknown if Ever Smoker Social History Alcohol abuse Other Social History: Good social support Ambulatory Status Independent Review of Systems Difficult to obtain ROS due to poor historian Respiratory: Denies: Non-productive cough, Shortness of breath Cardiovascular: Denies: Chest pain, Palpitations GI: Denies: Diarrhea, Nausea, Vomiting Neurologic: Reports: Change LOC Complete sys rev & neg: except as marked. Physical Exam Initial Vital Signs Vital Signs (First) Date Time Temp Pulse Resp B/P Pulse Ox O2 Delivery O2 Flow Rate FiO2 03/30/17 14:20 37.3 144 19 148/81 94 Room Air 03/30/17 15:21 1 Initial VS: Reviewed, Vital signs abnormal ENT: Mucous membranes moist, Conjunctiva normal, No scleral icterus Extremities: Vascular intact, Neuro intact Skin: Warm, Dry, No cyanosis Psychiatric: Mood/affect normal, Behavior normal General/Constitutional: Awake, Alert, Cooperative, Not toxic appearing Head / Eyes: Atraumatic, Normocephalic, PERRL, EOMI Neck: Atraumatic, Full range of motion Respiratory / Chest: Atraumatic, Breath sounds NL, Breath sounds = bilat Cardiovascular: Regular rhythm, Heart sounds NL Heart Rate / Rhythm: Positive: Tachycardia Neurologic: Oriented X3, Speech NL, No motor deficits, No sensory deficits Abdomen: Atraumatic, Soft Tenderness/Guarding/Rebound: Positive: Tender RLQ... (Mild) Lower Extremity / Pelvis / MS: Neurologic intact, Vascular intact Ankle / Foot: Neurologic intact, Vascular intact Moderate deformity of the feet with trace edema Interpretation & Diagnostics Right ankle x-ray shows a posterior fracture Lab Results Interpretation Result Diagram: 03/30/17 1525 03/30/17 1525 Test 03/30/17 15:25 White Blood Count 7.1th/mm3 (3.8-10.1) Red Blood Count 3.35mil/mm3 (3.90-5.20) Hemoglobin 12.4g/dL (12.0-15.6) Hematocrit 36.5% (35.0-46.0) Mean Corpuscular Volume 109.0fL (81-100) Mean Corpuscular Hemoglobin 37.0pg (27.0-35.0) Mean Corpuscular Hemoglobin Concent 34.0% (32.0-37.0) Red Cell Distribution Width 13.8% (12.3-15.4) Platelet Count 138bil/L (150-400) Neutrophils (%) (Auto) 91.5% (40-74) Lymphocytes (%) (Auto) 4.4% (14-46) Monocytes (%) (Auto) 3.2% (4-12) Eosinophils (%) (Auto) 0% (0-5) Basophils (%) (Auto) 0.3% (0-3) Sodium Level 137mEq/L (134-144) Potassium Level 4.7mEq/L (3.5-5.2) Chloride Level 98mEq/L (97-108) Carbon Dioxide Level 14mmol/L (18-29) Blood Urea Nitrogen 16mg/dL (8-27) Creatinine 0.58mg/dL (0.57-1.00) Estimat Glomerular Filtration Rate 148mL/min (>59) Glucose Level 152mg/dL (60-99) Calcium Level 8.6mg/dL (8.5-10.1) Magnesium Level 1.5mg/dL (1.6-2.6) Total Bilirubin 1.1mg/dL (0.0-1.2) Aspartate Amino Transf (AST/SGOT) 67U/L (0-50) Alanine Aminotransferase (ALT/SGPT) 35U/L (0-32) Alkaline Phosphatase 107U/L (25-165) Troponin T < 0.010ug/L (0.0-0.011) Total Protein 6.9g/dL (6.4-8.4) Albumin 3.8g/dL (3.4-5.0) Hold [place] Top Tube Received (Received) Alcohols < 10mg/dL (0-10) ECG Interpretation ECG Interpretation: Ectopic atrial tachycardia, unifocal, with a rate of 139 ST depression rate related Time: 14:25 Interpreted by: ED physician X-Ray Chest Interpretation Chest Xray Interpretation: IMPRESSION: Subtle right basilar airspace disease may represent pneumonia versus atelectasis. Please correlate clinically. Dictated by: Justo Simms M.D. on 03/30/2017 at 14:21 View: Portable, 1 view Interpretation / Wet Read by: Interpret - Radiologist X-Ray Interpretation Xray Interpretation: IMPRESSION: 1. Fracture of the distal fibula of uncertain chronicity. Relative absence of soft tissue swelling over the lateral malleolus suggests possible old fracture. Recommend clinical correlation. 2. Fusion of the subtalar joint. 3. Osteopenia. Dictated by: Aniket Jaffe M.D. on 03/30/2017 at 17:40 Study Performed: Minimum 3 views X-Ray Ordered: Ankle right Procedures Splint Application - Fx Mgt Time: 17:52 Procedure Performed by: Building Rental Manager Precise Anatomic Location: Right ankle Type of Immobilization: Ortho-glass Definitive Fracture Care: Splint Post-Procedure / Complications: Cap refill normal, Cap refill abnormal, Post splint vascular nl, Post splint neuro nl Re-Eval/Medical Decision Source of Hx: Old records, EMS Re-Evaluation/Progress #1: Time of Eval: 16:42 )( Re-Eval Neurologic Exam: Alert, Speech normal Re-Evaluation/Progress Note: Pt rechecked. Pt is comfortable and chatty. She is tender and bruised over the right ankle which appear to be older than just today. Will obtain x-ray. Re-Evaluation/Progress #2: Time of Eval: 17:30 )( Re-Eval Neurologic Exam: Alert Re-Evaluation/Progress Note: Pt rechecked. Informed pt of plan for admission. Pt understands and agrees with plan for admission. All questions addressed. Consultation : Referral / Consult Name: Alejandra Reyna DO Consulted With: Hospitalist Call Returned at: 17:26 Cake Icer: Will see patient, Agrees with eval, Agrees with plan, Accepts admit Counseled Regarding: Diagnosis, Lab results, Need for admission Patient Discharge & Departure Impression: Primary Impression: Atrial flutter with rapid ventricular response Additional Impression: Ankle fracture Disposition: ADMITTED TO HOSPITAL Discharge Condition All VS Reviewed: Yes Condition: Stable Referrals: Reji Jimenez DO (PCP) Crit Care Except Billable Proc Time Spent: 30-74 minutes Services Performed: Patient management by me, Time spent at bedside, Reviewing test results, Reviewing imaging, Discussing patient care, Documentation in record Scribe Attestation Portions of this note were transcribed by Jose Luis Mcginnis and Lori Spear. I, Dr. Booth personally performed the history, physical exam and medical decision-making; I reviewed and confirmed the accuracy of the information in the transcribed note. Signed by: Jose Luis Mcginnis and Lori Spear, Mt, 03/30/17 and 15:50. copies to: Reji Jimenez Kirk H MD Mar 30, 2017 14:26 Lori Vázquez Mar 30, 2017 14:36 JOSE LUIS MCGINNIS Mar 30, 2017 15:01
[2017-03-30] MEDS ORDERED: Diltiazem 5 mg/mL 5 mL Inj IVPUSH ONE (14:40)
[2017-03-30] MEDS ORDERED: Ondansetron 2 mg/mL 2 mL Inj ONE (14:47)
--- NOTE | 2017-03-30 15:23 | DRSVH ---
PROCEDURE: X-RAY CHEST ONE VIEW, PORTABLE ([id number]) INDICATIONS: tachcardia TECHNIQUE: One view of the chest was acquired. COMPARISON: [facility], CR, XR CHEST 1VW (PORTABLE), 02/17/2017, 13:02. FINDINGS: Surgical changes and devices: None. Lungs and pleura: There is subtle airspace disease within the right lateral lung, which is new since the prior study. No lobar consolidation, effusion, or pneumothorax is identified. Mediastinum: Mediastinal contours appear normal. Heart size is normal. Bones and chest wall: No suspicious bony lesions. Degenerative changes of the thoracic spine and sh oulders are not well evaluated. Overlying soft tissues appear unremarkable. IMPRESSION: Subtle right basilar airspace disease may represent pneumonia versus atelectasis. Please correlate clinically. Dictated by: Justo Simms M.D. on 03/30/2017 at 14:21 Approved by: Justo Simms M.D. on 03/30/2017 at 14:21
[2017-03-30] MEDS: Diltiazem 125 mg/125 mL D5W IV SCH ×2 (15:24)
[2017-03-30 15:33] LABS: BASOPHILS % (AUTO) 0.3 % (0-3); EOSINOPHILS % (AUTO) 0 % (0-5); MONOCYTES % (AUTO) 3.2 % (4-12); NEUTROPHILS % (AUTO) 91.5 % (40-74); Platelet Count 138 bil/L (150-400)
[2017-03-30 16:12] LABS: TROPONIN T < 0.010 ug/L (0.0-0.011)
[2017-03-30 16:17] LABS: Magnesium 1.5 mg/dL (1.6-2.6)
[2017-03-30] MEDS ORDERED: Ondansetron 2 mg/mL 2 mL Inj IVPUSH PRN ×3 (17:00→18:15)
[2017-03-30] MEDS ORDERED: HYDROcodone-APAP 10-325 mg PO ONE (17:05)
[2017-03-30] MEDS ORDERED: DOXY20TA5 PO (17:26)
[2017-03-30] MEDS ORDERED: ASPI81TA3 PO (17:26)
[2017-03-30] MEDS ORDERED: MAGN400T4 PO (17:26)
--- NOTE | 2017-03-30 17:46 | DRSVH ---
PROCEDURE: X-RAY RIGHT ANKLE, MINIMUM THREE VIEWS ([id number]) INDICATIONS: pain, bruising TECHNIQUE: 3 views of the ankle were acquired. COMPARISON: None. FINDINGS: Bones: There is fracture in the distal fibula of uncertain chronicity. There is fusion of the subtal ar joint. Ankle mortise is normally aligned. No suspicious bony lesions. There is osteopenia. Soft tissues: No tibiotalar joint effusion. Achilles tendon appears normal. IMPRESSION: 1. Fracture of the distal fibula of uncertain chronicity. Relative absence of soft tissue swelling ov er the lateral malleolus suggests possible old fracture. Recommend clinical correlation. 2. Fusion of the subtalar joint. 3. Osteopenia. Dictated by: Aniket Jaffe M.D. on 03/30/2017 at 17:40 Approved by: Aniket Jaffe M.D. on 03/30/2017 at 17:44
[2017-03-30] MEDS ORDERED: Alum-Mag Hydrox-Simeth 30 mL Suspension PO PRN ×2 (17:55→18:15)
[2017-03-30] MEDS ORDERED: Polyethylene Glycol (PEG) 17 Gm Powder PO PRN (18:15)
[2017-03-30] MEDS ORDERED: Labetalol 5 mg/mL 4 mL Inj IVPUSH PRN (18:15)
--- NOTE | 2017-03-30 18:40 | PCM.HPMED ---
Subjective Date of Service Mar 30, 2017 Primary Provider: Admitting Physician: Primary Care Physician: Reji Jimenez DO Attending Physician: Chief Complaint: Unresponsive, fall, a-fib History of Present Illness: 67-year-old female history of atrial fibrillation, postpolio syndrome, and hypertension who was found unresponsive due to ground-level fall around 1400 today. Patient is an unreliable historian. Patient states that her 70 pound dog knocked her over and that she remembers all the events of the fall, EMS arrival, and transport to the hospital, however EMS stated that she was found on the floor after her shower. Patient also states that her ' is one who found her although her does not live with her. Medics administered 4 mg Narcan without response, followed that by 6 mg and then 12 mg of adenosine which allowed EMS to identify a flutter on EKG. Rate at that time was 180-280 bpm. 20 mg of IV diltiazem was given and that brought her heart rate down into the 120s. Patient denies associated review of symptoms. She is unable to recall what season it is, what year it is, where she is, what city she is in, the medications she is taking, who her PCP is, but does remember that Elisabet is the president. Review of home records has a patient being admitted in late January of this year due to A. fib with RVR and was successfully treated with a diltiazem drip and sent home on 240 mg of diltiazem ER. It is unknown she takes medication today and she has not a sufficient historian to confirm this. Her outpatient records also identify her as being on Xarelto due to A. fib although she is a high fall risk due to ambulation issues related to polio. Patient also denied excessive alcohol abuse and interviewed in the emergency department but again, home records indicate that her friends have been concerned about her drinking habits for more than 6 months and report that she consumes more than half of fifth of vodka a day. Review of Systems: Complete review of systems performed; pertinent positives and negatives per history of present illness, all other systems reviewed and are negative. Allergies Coded Allergies: codeine (Verified Allergy, Mild, ITCH, 03/30/17) Home Medications From PCP records: Lisinopril 40 mg daily Citalopram 20 mg daily Diltiazem ER 240 mg daily Xarelto 20 mg daily Ranitidine 300 mg daily Reported atorvastatin PMH Right breast calcification Benign colon polyp Post polio syndrome Alcohol abuse and dependence Diabetes mellitus 2, diet-controlled Hypertension Possible depression A-fib with hx of RvR Surgical History Bilateral tubal ligation Bilateral knee surgeries and lower leg surgeries Right hip replacement Family History Father of [place] when patient was 2 Mother still living Social History Hx Alcohol Use: Yes Hx Substance Use: No (denies) Smoking Status: Unknown if Ever Smoker Exam Vital Signs Vital Sign - Last Date Time Temp Pulse Resp B/P Pulse Ox O2 Delivery O2 Flow Rate FiO2 03/30/17 16:38 124 18 158/84 94 Room Air 03/30/17 15:21 1 03/30/17 14:20 37.3 Exam General: Patient is pleasant, oriented to self and nothing else HEENT: EOMI, PERRLA, mucous membranes moist sclera anicteric Lymph: No lymphadenopathy Cardio: Tachycardia, irregular Respiratory: Mild crackles in the bases, otherwise clear to auscultation Abdomen: Positive bowel sounds, nontender, nondistended, soft Extremities: Multiple scars, bruising on the right ankle, tenderness to palpation on the ankle, strength 2 out of 5 Psych: Patient is unable to recall recent events or events over the last 6 months, but is calm Neuro: No exam is benign with cranial nerves II through XII intact, memory is significantly impaired Skin: No rashes Lab and Diagnostics Result Diagram: 03/30/17 1525 03/30/17 1525 X-Rays, CTs and MRIs CXR Subtle right basilar airspace disease may represent pneumonia versus atelectasis. Please correlate clinically. Dictated by: Justo Simms M.D. on 03/30/2017 at 14:21 Ankle X-ray 1. Fracture of the distal fibula of uncertain chronicity. Relative absence of soft tissue swelling over the lateral malleolus suggests possible old fracture. Recommend clinical correlation. 2. Fusion of the subtalar joint. 3. Osteopenia. Dictated by: Aniket Jaffe M.D. on 03/30/2017 at 17:40 Assessment & Plan 67-year-old female who is a poor historian presents to the emergency department after being found unconscious due to atrial fib with RVR Atrial fibrillation with loss of consciousness; present admission; ongoing -Patient has a history of A. fib and outpatient records; found unresponsive after showering at home with heart rate between 180 and 280 -Home meds include 240 mg of diltiazem ER and questionable Xarelto -Patient currently on diltiazem drip will continue this overnight -In a.m. 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 fib -CT of the brain without contrast pending -MRI without contrast ordered; did not perform an MRI stroke protocol this time -Every 2 neurological checks -Pending imaging, will place patient on aspirin and Plavix as appropriate -Continue home atorvastatin Ankle fracture; present on admission; ongoing -Complaints of ankle pain with bruising around the medial and lateral malleolus ; imaging identified distal fibular fracture likely to be chronic -Consider orthopedics for review of imaging tomorrow morning Hypertension; present on admission; ongoing -Patient was on lisinopril at home; presents with a blood pressure of 158/84 -Labetalol ordered for SBP greater than 180 -Restart lisinopril; we will monitor with diltiazem Macrocytic anemia with thrombocytosis; present admission; ongoing -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 Hypomagnesemia; poa; ongoing -Replace tonight Hyperlipidemia; poa; stable -Continue home atorvastatin Elevated transaminases; poa; ongoing -likely second to alcohol abuse, especially in the setting on the thrombocytopenia -trend for resolution -IVF tonight Disposition: Patient being admitted to the inpatient floor with expected length of stay greater than 2 minutes due to severity presentation, duration of treatment, and risk of adverse events. Pain Evaluation: Adequate Pain Control Resuscitation Status: CPR: Attempt Resuscitation Time spent 60 minutes Attending Statement The patient was seen and examined together with on 03/30/17 and I agree with the history, exam and plan as outlined in the note above. Nikhil Valdivia DO Mar 30, 2017 18:40 Alejandra Reyna DO Apr 02, 2017 15:47
--- NOTE | 2017-03-30 18:51 | DRSVH ---
PROCEDURE: CT BRAIN WITHOUT CONTRAST ([id number]) INDICATIONS: stroke TECHNIQUE: Noncontrast 4.5 mm thick angled axial sections acquired from the foramen magnum to the vertex, with c oronal reformats. COMPARISON: None. FINDINGS: Image quality: Excellent. CSF spaces: Basal cisterns are patent. No extra-axial fluid collections. The ventricles are symmet jessica in size and shape. Brain: No intracranial bleeds or masses. There is mild to moderate cerebral volume loss for age, wi th resultant ventricular and sulcal prominence. There are mild periventricular and deep white matter chronic small vessel ischemic changes. There is intracranial internal carotid artery atherosclerosi s. Skull and face: Calvarium and visualized facial bones appear intact, without suspicious lesions. Sinuses: Bilateral maxillary sinus mucosal thickening. The mastoids are clear. IMPRESSION: 1. No acute intracranial abnormalities. 2. Cerebral volume loss and chronic microvascular ischemic changes. Dictated by: Aniket Jaffe M.D. on 03/30/2017 at 18:45 Approved by: Aniket Jaffe M.D. on 03/30/2017 at 18:49
[2017-03-30] MEDS ORDERED: Glucose 40% Oral Gel 15 Gm Tube PO PRN (19:10)
[2017-03-30] MEDS ORDERED: 0.9% Sodium Chloride 1,000 ML IV ONE (19:10)
[2017-03-30 19:35] LABS: Unsaturated Iron Binding 84.8 ug/dL
--- NOTE | 2017-03-30 21:30 | NUR ---
Admission: Pt received to room 2030 at 2044 in stable condition on a cardizem gtt at 10 mg/hour. Pt noted be confused as to the month and year and is confused as to what brought her to the hospital. Initial assessment completed as charted. Aflutter in the 120s noted initially. Will cont. to closely monitor. Pt is a poor historian in regards to her past history. Pt noted to have tremulous hands. She states that she only drinks 1-2 drinks/week. Bed in the low and locked position. Pt given call light and instructed on use. Pt currently NPO until swallow eval is completed by chemical pathologist.
[2017-03-30] MEDS: 0.9% Sodium Chloride 1,000 ML IV SCH (22:00)
[2017-03-30] MEDS: Insulin LISPRO 300 Unit/3 mL Inj SUBQ SCH (22:00)
[2017-03-30] MEDS ORDERED: Magnesium Chloride SR 64 mg ER24 Tablet PO ONE (22:30)
--- NOTE | 2017-03-30 23:15 | NUR ---
MRI: Touched base with Dr. Dawson regarding POC. Orders obtained to hold Lisinopril dose tonight and to trial pt off of the Cardizem gtt to see if the pt's HR could tolerate being off the gtt and unmonitored for a MRI. Pt tolerated being off the gtt temporarily and maintained at HR in the 90s--Aflutter. Cardizem resumed, however injection mold technician is no longer in house. Dr. Dawson updated. MRI scheduled for tomorrow. No change in pt's neuro status. Will cont. to monitor.
[2017-03-31] VITALS (14 sets, daily range): BP systolic 113–143; BP diastolic 55–85; PULSE 77–109; RESP 16–20; O2SAT 96–97
--- NOTE | 2017-03-31 03:24 | NUR ---
Pt found on the floor: Pt was found on the floor at approximately 0235. Pt was noted to be confused and calling the RN "Caitie," which is her niece. Pt was scooting herself on the floor to get to the bathroom. The pt had pulled off her tele leads, SCD to her left leg, blood pressure cuff, and IV line. HRR went up to 150s with the activity. The pt stated that she did not fall, but rather lowered herself to the floor and was "humping" her way to the bathroom like she does at home during the night. The pt states that she believed that she was at home. Dr. Rojo came to the room to assess the pt at approximately 0245 No new orders. The pt was assisted to the BSC where she proceed to void and then assisted with a belt back to bed with a two person assist. The pt states that she is not injured. Circulation, sensation, and movement intact to R leg. New IV placed and Cardizem gtt resumed. VSS. Will cont. to closely monitor. Pt is fully alert at this time. [place] bed alarm activated.
[2017-03-31 05:19] LABS: BASOPHILS % (AUTO) 0.2 % (0-3); EOSINOPHILS % (AUTO) 0.9 % (0-5); MONOCYTES % (AUTO) 9.2 % (4-12); Mean Corpuscular Hemoglobin 36.7 pg (27.0-35.0); Mean Corpuscular Volume 111.4 fL (81-100); NEUTROPHILS % (AUTO) 74.7 % (40-74); Platelet Count 127 bil/L (150-400)
[2017-03-31 05:28] LABS: INR 1.04 ratio
[2017-03-31] MEDS: Diltiazem 125 mg/125 mL D5W IV SCH ×2 (05:40)
[2017-03-31 05:50] LABS: Magnesium 1.5 mg/dL (1.6-2.6); Phosphorus 2.7 mg/dL (2.5-4.9)
[2017-03-31] MEDS ORDERED: Glycopyrrolate 0.2 MG/ML 1mL Inj IVPUSH PRN (08:00)
[2017-03-31] MEDS: Insulin LISPRO 300 Unit/3 mL Inj SUBQ SCH ×4 (08:00→22:00)
[2017-03-31] MEDS: Diltiazem CD 240 mg ER24 Capsule PO SCH (08:53)
[2017-03-31] MEDS: 0.9% Sodium Chloride 1,000 ML IV SCH ×2 (08:54→15:10)
--- NOTE | 2017-03-31 10:30 | DRSVH ---
PROCEDURE: MRI BRAIN WITHOUT CONTRAST ([id number]) INDICATIONS: Memory loss,evaluate for stroke TECHNIQUE: Non-contrast axial T1 spin echo, axial T2 fast spin echo, sagittal and axial FLAIR, coronal T2 fast s pin echo, axial gradient echo, axial diffusion and ADC through the brain. COMPARISON: None. FINDINGS: Image quality: Excellent. CSF spaces: Ventricles appear symmetric in size and shape. Basal cisterns are patent. No extra-axi al fluid collections. Brain: No intracranial bleeds or mass effects. There is cerebral volume loss for age. There are pe riventricular and deep white matter chronic small vessel ischemic changes. Brainstem appears normal. Diffusion-weighted images show no acute ischemic insults. No chronic ischemic insults. Normal int ravascular flow voids are present. Skull and face: Calvarial bone marrow is normal in signal. Orbits are normal. Sinuses: Mild bilateral maxillary sinus mucosal thickening noted. Small amount of fluid noted deep in the portions of the mastoid air cells bilaterally. IMPRESSION: 1. No acute intracranial disease process. 2. No areas of acute or chronic infarction. 3. Mild periventricular and subcortical white matter chronic microvascular ischemic changes. 4. Mild, diffuse volume loss. 5. Bilateral maxillary sinus mucosal thickening. Dictated by: Lima Freeman MD, PhD on 03/31/2017 at 10:25 Approved by: Lima Freeman MD, PhD on 03/31/2017 at 10:28
--- NOTE | 2017-03-31 10:31 | DRSVH ---
PROCEDURE: MRA ANGIOGRAM HEAD WITHOUT CONTRAST ([id number]) INDICATIONS: MEMORY LOSS,EVALUATE FOR STROKE TECHNIQUE: Noncontrast axial 3-D [id number] MR angiogram, with 3-dimensional maximum intensity projection (M IP) reformats of the internal carotid arteries and posterior circulation then performed. COMPARISON: None. FINDINGS: Image quality: Excellent. Anterior circulation: Intracranial internal carotid arteries demonstrate normal size and intralumina l flow signal. The flow within the paired anterior cerebral arteries is normal and symmetric. The f low within the middle cerebral arteries is normal and symmetric. The anterior communicating artery i s seen. No stenoses, occlusions, or aneurysms. Posterior circulation: Visualized portions of the vertebral arteries demonstrate normal caliber, and join to form a normal appearing basilar artery. The flow within the posterior cerebral arteries is normal and symmetric. No stenoses, occlusions, or aneurysms. IMPRESSION: Negative examination. Dictated by: Lima Freeman MD, PhD on 03/31/2017 at 10:28 Approved by: Lima Freeman MD, PhD on 03/31/2017 at 10:30
[2017-03-31] MEDS ORDERED: Magnesium Chloride SR 64 mg ER24 Tablet PO ONE (11:00)
--- NOTE | 2017-03-31 14:07 | PCM.PNMED ---
Subjective Date of Service Mar 31, 2017 Subjective The patient states that this admission is all just a misunderstanding, she denies confusion, memory loss, alcohol abuse, or really any difficulty beyond her underlying post polio syndrome and right ankle fracture. However, the patient was unable to answer essentially any orientation questions correctly, had an episode overnight in which she was found on the floor of her room scooting to the bathroom without alerting nursing; and mistook nursing staff for her niece. Whenever the patient was challenged with these discrepancies she would attempt to divert the conversation or deny the unanimous accounts of other objective observers. Comprehensive ROS negative except as listed above. Exam Vital Signs Vital Sign - Last Date Time Temp Pulse Resp B/P Pulse Ox O2 Delivery O2 Flow Rate FiO2 03/31/17 11:30 36.8 106 20 131/78 97 Room Air 03/30/17 20:39 1 Intake and Output 03/30/17 03/30/17 03/31/17 Cumulative From/Thru 15:00 23:00 07:00 03/30/17 14:20 - 03/31/17 06:04 Intake Total 2000 ml 1135 ml 3135 ml Output Total 300 ml 300 ml Balance 2000 ml 835 ml 2835 ml Intake Oral 400 ml 400 ml IV Total 2000 ml 735 ml 2735 ml Output Urine Total 300 ml 300 ml # Voids 1 1 Exam Gen: Alert, oriented only to self and season after looking out the window Neck: Supple, non tender, Full ROM HEENT: PERRL, EOMI, no scleral icterus, no conjunctival pallor CV: Irregularly irregular rhythm. no murmurs rubs or gallops Resp: Lungs CTA BL, no wheezing rales or rhonchi Abdomen: Soft, non tender, no organomegaly Extr: Right leg bandaged in brenda wrap, BL moderate LE edema, no cyanosis or clubbing Neuro: CN 2-12 grossly intact, no focal neurologic deficit Psych: Patient very excitable with tangential thinking, focused upon finding a book which no one had observed her reading or having, obfuscates and confabulates when confronted with evidence of her cognitive decline and the likely underlying etiology of alcohol abuse IVs and Medications IV Fluids NS @ 100 ml/hr Medications Reviewed: Medications were reviewed in detail Lab and Diagnostics Item Value Date Time Red Blood Count 2.97 mil/mm3 L 03/31/17 0503 Mean Corpuscular Volume 111.4 fL H 03/31/17 0503 Mean Corpuscular Hemoglobin 36.7 pg H 03/31/17 050 Mean Corpuscular Hemoglobin Concent 32.9 % 03/31/17 050 Red Cell Distribution Width 14.3 % 03/31/17 050 Neutrophils (%) (Auto) 74.7 % H 03/31/17 0503 Lymphocytes (%) (Auto) 14.7 % 03/31/17 050 Monocytes (%) (Auto) 9.2 % 03/31/17 050 Eosinophils (%) (Auto) 0.9 % 03/31/17 050 Basophils (%) (Auto) 0.2 % 03/31/17 050 Estimat Glomerular Filtration Rate 107 mL/min 03/31/17 050 Calcium Level 8.1 mg/dL L 03/31/17 050 Phosphorus Level 2.7 mg/dL 03/31/17 0503 Magnesium Level 1.5 mg/dL L 03/31/17 0503 Total Bilirubin 1.1 mg/dL 03/31/17 0503 Alanine Aminotransferase (ALT/SGPT) 27 U/L 03/31/17 0503 Aspartate Amino Transf (AST/SGOT) 42 U/L 03/31/17 0503 Alkaline Phosphatase 90 U/L 03/31/17 0503 Total Protein 6.1 g/dL L 03/31/17 0503 Albumin 3.7 g/dL 03/31/17 0503 Procalcitonin 0.12 ng/mL H 03/31/17 0503 Thyroid Stimulating Hormone (TSH) 0.769 uIU/mL 03/31/17 0503 Result Diagram: 03/31/17 0503 03/31/17 0503 X-Rays, CTs and MRIs CXR Subtle right basilar airspace disease may represent pneumonia versus atelectasis. Please correlate clinically. Dictated by: Justo Simms M.D. on 03/30/2017 at 14:21 Ankle X-ray 1. Fracture of the distal fibula of uncertain chronicity. Relative absence of soft tissue swelling over the lateral malleolus suggests possible old fracture. Recommend clinical correlation. 2. Fusion of the subtalar joint. 3. Osteopenia. Dictated by: Aniket Jaffe M.D. on 03/30/2017 at 17:40 MRI BRAIN WITHOUT CONTRAST IMPRESSION: 1. No acute intracranial disease process. 2. No areas of acute or chronic infarction. 3. Mild periventricular and subcortical white matter chronic microvascular ischemic changes. 4. Mild, diffuse volume loss. 5. Bilateral maxillary sinus mucosal thickening. Dictated by: Lima Freeman MD, PhD on 03/31/2017 at 10:25 Approved by: Lima Freeman MD, PhD on 03/31/2017 at 10:28 MRA ANGIOGRAM HEAD WITHOUT CONTRAST IMPRESSION: Negative examination. Dictated by: Lima Freeman MD, PhD on 03/31/2017 at 10:28 Approved by: Lima Freeman MD, PhD on 03/31/2017 at 10:30 . Assessment & Plan 67-year-old female who is a poor historian presents to the emergency department after being found unconscious due to atrial fib with RVR. CT and MRI of the brain have been negative which renders CVA less likely. It appears that much of her cognitive difficulty is likely related to her longstanding alcohol abuse, the patient denies alcohol consumption beyond "A couple glasses of wine with dinner and occasional drinks with friends", however these self same friends have expressed great concern with her abuse in the past stating that she drinks roughly a 1/2 gallon of vodka daily, and this appears to be corroborated by her clinical and laboratory evaluation. Atrial fibrillation with loss of consciousness; present admission; ongoing -Patient has a history of A. 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 fib -CT of the brain without contrast pending -MRI stroke negative -Every 2 neurological checks -Continued home atorvastatin 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 Hypertension; present on admission; ongoing -Patient was on lisinopril at home; presents with a blood pressure of 158/84 -Labetalol ordered for SBP greater than 180 -Restart lisinopril; we will monitor with diltiazem Macrocytic anemia with thrombocytosis; present admission; ongoing -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 -Ordered B12/folate as well as iron studies -Iron and iron binding elevated, likely secondary to chronic alcohol use Alcohol abuse; present on admission; ongoing -Monitor for withdrawal -Alcohol was negative on admit -Initiated CIWA protocol due to tremor and agitation -Thiamine and folate repletion as above -Social work consult for substance abuse Hyperglycemia; present admission; ongoing -Patient has a questionable history of diabetes but most recent A1c was 4.8 in January -Patient's glucose was 152 on admit -Will start low-dose correctional tonight and changed to glargine if needed Hypomagnesemia; poa; ongoing -Replaced -Will continue to monitor Hyperlipidemia; poa; stable -Continue home atorvastatin Elevated transaminases; poa; ongoing -likely second to alcohol abuse, especially in the setting on the thrombocytopenia -trend for resolution -IVF tonight Disposition: Patient will likely be able to DC from a medical standpoint once her Afib achieves better rate control, likely 1-2 more days, she would likely benefit from further substance abuse treatment but given her profound degree of denial she would likely decline such an intervention. Pain Evaluation: Adequate Pain Control VTE Prophylaxis: Other (Continue home Xarelto) VTE Mechanical Devices: Intermittant Pneumatic CD Resuscitation Status: CPR: Attempt Resuscitation Attending Statement The patient was seen and examined together with Dr. Valerio on 03/31/17 and I have added additional information to the note above. James Valerio DO Mar 31, 2017 14:07 Alejandra Reyna DO Apr 03, 2017 16:55
--- NOTE | 2017-03-31 14:41 | NUR ---
Social Work Note: Screen Note Data& Assessment: EMR reviewed. Letitia Cancino is a 67 year old female admitted on on 03/30/2017 for A flutter with RVR. Pt was found down on the sidewalk and brought in via EMS. Per MD pt ETOH was 0. SW did receive order to offer substance use resources and discuss ETOH hx with pt. Per RN, pt heart rate is rising after friends visited and pt is confused at this time. SW to follow up with pt when more appropriate to complete initial assessment and offer resources. SW to continue to follow. Plan: Anticipated discharge home via POV when medically ready. SW to follow up with pt when more appropriate to complete initial assessment and offer resources. SW to continue to follow. KEON Cavazos
--- NOTE | 2017-03-31 18:22 | NUR ---
Mentation Pt CIWA score at about 1754 was 1. After patient assessment walked out of room and made it to middle of nursing unit when Vocera indicated that patient was out of bed. Found pt sitting on floor, scooting around. Asked pt how she got to the floor, pt stating "I lowered myself to the floor like I do at home to get to her wheelchair". Wheelchair not in the room. Pt CIWA 10 when re-scored, 10mg Diazepam given. Noted pt eating however not chewing her food thoroughly, tray taken away from pt at that time. Went out of room to help with another patient for a 1min when back in room pt was chewing on paper. Paper and any other objects moved out of pt reach. Pt getting more agitated, while trying to help her back in bed. thermo cementing folder operator made aware, new order to move pt to another room with sitter. While giving report to oncoming RN, noted pt had knife in her hand that she got from her purse. knife and valuables taken and given to security to be locked into safe. Report given to oncoming RN.
--- NOTE | 2017-03-31 19:27 | PCM.CONORT ---
Subjective Surgeon Admitting Provider:Alejandra Reyna DO Attending Provider:Alejandra Reyna DO Primary Care Physician:Reji Jimenez DO Other Provider: Reason for Consultation: right ankle fracture Allergy Allergies: Coded Allergies: codeine (Verified Allergy, Mild, ITCH, 03/30/17) Medications Aspirin Chew (Aspirin Chew) 81 Mg Chew 81 MG PO DAILY (Reported) Last Taken: Unknown Dose on 03/29/17 Citalopram (Citalopram) 20 Mg Tablet 20 MG PO DAILY (Reported) Last Taken: Unknown Dose on 03/29/17 0800 Diltiazem ER (Diltiazem ER) 240 Mg Cap.er.24h 240 MG PO DAILY Prescribed by: DIEGO ZHOU MD Last Taken: Unknown Dose on 03/29/17 0800 Hydrocodone/Acetaminophen (Lorcet 5- 325 mg Tablet) 1 Each Tablet 1-2 EACH PO q4-6h PRN PRN For Pain (Reported) Last Taken: Unknown Dose on Unknown Date & Time Discontinued Medications Doxycycline Hyclate (Doxycycline Hyclate) 20 Mg Tablet 20 MG PO DAILY (Reported ) Fish Oil/Dha/Epa (Fish Oil 1,200 mg Fish Oil) 1 Each Capsule 1 EACH PO DAILY ( Reported) Magnesium Oxide (Magnesium Oxide) 500 Mg Tablet 500 MG PO DAILY Prescribed by: DIEGO ZHOU MD Last Taken: Unknown Dose on 03/29/17 0800 Magnesium Oxide (Magnesium Oxide) 400 Mg Tablet 400 MG PO DAILY (Reported) Rivaroxaban (Xarelto) 20 Mg Tablet 20 MG PO DAILY Prescribed by: DIEGO ZHOU MD History History of ENT Problems?: No HEENT History: Denies:: Cataracts Dysphagia Glaucoma Sinus Problem Denture Type: None Teeth Condition: Within Normal Limits Other HEENT Pertinent History: eye surgery stated per pt. Hx of Heart Problems?: Yes Cardiovascular History: Positive for:: Hypertension Irregular Heartbeat ( Afib with RVR) Thrombophlebitis Denies:: Cardiac Surgery Chest Pain Congestive Heart Failure Edema Heart Murmur Pacemaker Hx of Respiratory Problem?: No Respiratory History: Denies:: Asthma COPD Chest Surgery Cough Dyspnea Emphysema Hemoptysis Oxygen Administration Pneumonia Pulmonary Embolism Tuberculosis Use of C-PAP Machine Use of Inhalers / NEBS Hx Neurologic Problems?: No Hx of GI Problems?: No Hx of Problems?: No Female Hx: Positive for:: Problems with Breasts? (hx fibrocystic breast disease) Denies:: Currently Endometriosis Pelvic Inflammatory Hx Musculoskeletal Problems?: Yes Other History/Comment 67-year-old female history of atrial fibrillation, postpolio syndrome, and hypertension who was found unresponsive due to ground-level fall yesterday. Patient has been deemed an unreliable historian. Patient states that she sprained her ankle about 1 week ago, otherwise, per primary team she told them a 70 pound dog knocked her over and that she remembers all the events of the fall. Per EMS, she was found on the floor after her shower. She has been treated for a-flutter in the past. She reports that she does not typically walk , but does mobilize via wheelchair and sometime crutches to stand. She reports some medial and lateral sided right ankle pain, reports that she merely has a sprain that occurred 1 week ago and has minimal pain. She reports that she has good sensation but minimal mobility which is her baseline. She denies any other injuries or complaints today. She was placed in a splint and ortho was consulted. Hx of Psycho/Social Problems?: No Hx Surgeries?: Yes (tubal ligation, multiple BLE surgeries, B eye surgery) Hx Any Other Health Problems?: Yes Other History: Positive for:: Hospitalization Denies:: Cancer Thyroid Disease History Blood Transfusions: Positive for:: Accept Blood Products? Denies:: Blood Transfuse Reaction Blood Transfusions Hx Diabetes: NoBedside Blood Glucose: 127 Hx Alcohol Use: Yes (one drink 1 to 2 times/week)Hx Substance Use: No Smoking Status: Unknown if Ever Smoker Objective Exam Vital Signs & I/O Vital Sign- Last 8 Hours Date Time Temp Pulse Resp B/P Pulse Ox O2 Delivery O2 Flow Rate FiO2 03/31/17 15:40 36.9 102 20 125/70 97 Room Air 03/31/17 11:30 36.8 106 20 131/78 97 Room Air Intake and Output- Last 8 Hour 03/31/17 Cumulative From/Thru 07:00 03/30/17 14:20 - 03/31/17 06:04 Intake Total 1135 ml 3135 ml Output Total 300 ml 300 ml Balance 835 ml 2835 ml Intake Oral 400 ml 400 ml IV Total 735 ml 2735 ml Output Urine Total 300 ml 300 ml # Voids 1 1 Lab & Micro Results Laboratory Tests Test 03/31/17 05:03 6/7/17 14:43 White Blood Count 6.7th/mm3 (3.8-10.1) Red Blood Count 2.97mil/mm3 (3.90-5.20) Hemoglobin 10.9g/dL (12.0-15.6) Hematocrit 33.1% (35.0-46.0) Mean Corpuscular Volume 111.4fL (81-100) Mean Corpuscular Hemoglobin 36.7pg (27.0-35.0) Mean Corpuscular Hemoglobin Concent 32.9% (32.0-37.0) Red Cell Distribution Width 14.3% (12.3-15.4) Platelet Count 127bil/L (150-400) Neutrophils (%) (Auto) 74.7% (40-74) Lymphocytes (%) (Auto) 14.7% (14-46) Monocytes (%) (Auto) 9.2% (4-12) Eosinophils (%) (Auto) 0.9% (0-5) Basophils (%) (Auto) 0.2% (0-3) Prothrombin Time 11.1sec (8.1-12.5) Prothromb Time International Ratio 1.04ratio Sodium Level 134mEq/L (134-144) Potassium Level 4.4mEq/L (3.5-5.2) Chloride Level 97mEq/L (97-108) Carbon Dioxide Level 19mmol/L (18-29) Blood Urea Nitrogen 21mg/dL (8-27) Creatinine 0.77mg/dL (0.57-1.00) Estimat Glomerular Filtration Rate 107mL/min (>59) Glucose Level 150mg/dL (60-99) Calcium Level 8.1mg/dL (8.5-10.1) Phosphorus Level 2.7mg/dL (2.5-4.9) Magnesium Level 1.5mg/dL (1.6-2.6) Total Bilirubin 1.1mg/dL (0.0-1.2) Aspartate Amino Transf (AST/SGOT) 42U/L (0-50) Alanine Aminotransferase (ALT/SGPT) 27U/L (0-32) Alkaline Phosphatase 90U/L (25-165) Total Protein 6.1g/dL (6.4-8.4) Albumin 3.7g/dL (3.4-5.0) Procalcitonin 0.12ng/mL (0.00-0.08) Thyroid Stimulating Hormone (TSH) 0.769uIU/mL (0.450-4.500) Hold Urine Received (Received) Result Diagram: 03/31/17 0503 03/31/17 0503 Review of Systems: Constitutional: Negative, except as otherwise mentioned in the history above. Ophthalmologic: Negative, except as otherwise mentioned in the history above. Cardiovascular: Negative, except as otherwise mentioned in the history above. Respiratory: Negative, except as otherwise mentioned in the history above. Gastrointestinal: Negative, except as otherwise mentioned in the history above. Genitourinary: Negative, except as otherwise mentioned in the history above. Musculoskeletal: Negative, except as otherwise mentioned in the history above. Neurological: Negative, except as otherwise mentioned in the history above. Psychiatric: Negative, except as otherwise mentioned in the history above. Hematologic/Lymphatic: Negative, except as otherwise mentioned in the history above. Allergic/Immunologic: Negative, except as otherwise mentioned in the history above. H&P Surgical Exam Exam Musculoskeletal: CONST: WD,WN, NAD, A+OX3 OCULAR: EOMI, no conjunctivitis/icterus ENT: no deformities, scars or lesions CARDIAC: Pulse is regular. No cyanosis,clubbing,edema RESP: regular,unlabored MSK: normal light touch SPN/DPN/TN distributions. able to wiggle toes, unable to DF/PF ankle, 2+ DP TTP medial and lateral malleolus, mild swelling neg squeeze test Additional Information 3 view xray of the right ankle demonstrates mildly displaced fibular fracture of unknown chronicity with osteopenia H&P Preop Plan Impression right ankle fracture Problems: Risks & Benefits * We have reviewed the risks and benefits as well as the alternatives to surgery. All questions were answered to the patient's satisfaction and a counseling note to that effect. The patient has provided informed consent. * I have counseled the patient regarding the deleterious effects that smoking during the perioperative period can have upon wound healing, infection rates, and the overall rate of complications. Plan NWB LLE keep elevated oral pain meds pt can f/u as outpatient in 2 weeks in clinic pt with polio and currently unambulatory, mortise intact continue short leg splint continue medical management per primary PT/OT for mobilization assistance please call with questions Isma Ferraro MD Mar 31, 2017 19:27
[2017-03-31] MEDS ORDERED: Haloperidol 5 mg/mL Inj IVPUSH ONE (21:30)
[2017-04-01] VITALS (9 sets, daily range): BP systolic 127–162; BP diastolic 70–138; PULSE 98–152; RESP 18–22; O2SAT 92–100
[2017-04-01] MEDS: 0.9% Sodium Chloride 1,000 ML IV SCH ×2 (01:10→11:36)
[2017-04-01] MEDS ORDERED: Haloperidol 5 mg/mL Inj IVPUSH ONE (02:20)
[2017-04-01 02:37] LABS: BASOPHILS % (AUTO) 0.4 % (0-3); MONOCYTES % (AUTO) 5.1 % (4-12); Mean Corpuscular Hemoglobin 36.8 pg (27.0-35.0); Mean Corpuscular Volume 109.8 fL (81-100); NEUTROPHILS % (AUTO) 68.9 % (40-74); Platelet Count 132 bil/L (150-400)
[2017-04-01 02:50] LABS: INR 1.37 ratio
[2017-04-01 03:06] LABS: Phosphorus 1.7 mg/dL (2.5-4.9)
[2017-04-01] MEDS: Diltiazem Inj 125 MG in 0.9% Sodium Chloride 100 ML, Pharmacy To Mix 1 EA IV SCH ×2 (05:41→23:15)
--- NOTE | 2017-04-01 06:16 | NUR ---
CIWA?Agitation/ Tele/Dilt Ciwa Score 26-30 , gave 69 Mg Valium IV too little sustained effect , agitation escalating , will advise day shift and MD. Telemetry: A-Flutter 12-140 , started on Diltiazem Gtt, @ 5 Ml . MD aware of HR spikes with agitation. Millie Yen called early in shift , 4 Point soft restraints. Sitter , required, this patient will require more care and evaluation , possible Mental Health Evaluation.
[2017-04-01] MEDS: Insulin LISPRO 300 Unit/3 mL Inj SUBQ SCH ×4 (08:00→22:00)
[2017-04-01] MEDS: Multivit-Miner-Folic Acid-Iron Tablet PO SCH (08:19)
[2017-04-01] MEDS: Diltiazem CD 240 mg ER24 Capsule PO SCH (08:19)
--- NOTE | 2017-04-01 08:19 | NUR ---
Restlessness/Cardiac Pt has been restless and pulling on her right leg dressing along with trying to get up out of bed. Pt in 4 point restraints, has been given 10mg Valium x3 doses since 729. Pt is refusing to follow commands, refusing to take pills, refusing to let me check her blood sugar. Pt awake but doesn't not know where she is or why shes here, hallucinations thinking things are on the floor and seeing people in the room that are not there. HR is sustaining in the 150's on a dilt drip running at 10 mls/hr, BP 160/128. Will chat with MD's when rounding, will continue to monitor. Addendum: 04/01/17 at 1108 by RICO NATH RN At 0915 after a total of 6 doses of 10mg IVP Valium pt fell asleep till 1040. Pt's HR came down to low 100's with a BP 110/62. Dilt drip turned down to 10mg/hr. When pt woke back up at 1040 HR then increased to 150's with BP 155/100. MD's rounding and aware. Changes in medications ordered. Will continue to monitor.
--- NOTE | 2017-04-01 10:28 | NUR ---
Social Work: Attempted Assessment D: Pt discussed in am rounds. Pt continues to remain on CIWA protocol with the most recent score of 31. Pt is not appropriate for assessment at this time and is actively withdrawing and hallucinating. Pt with restraints due to combativeness. t/c to pt's NOK, brother Jovanny Mauricio, to attempt assessment; no answer. EMPLOYMENT RECRUITER Left message requesting return phone call. Per EMR review, pt was last admitted at [facility] on 02/17-02/19/2017. Case Management/Social work saw pt on 02/18 with pt providing the following information to EMPLOYMENT RECRUITER: Pt was living on [address], alone. Pt was I with ADLs with the use of crutches. During last visit pt agreed that she drinks ETOH but did not find it to be problematic; Pt declined resources during that admission. A: Pt who was previously I with ADLs with the use of crutches. P: Evolving; EMPLOYMENT RECRUITER to continue to attempt assessment with pt and/or family and assess for discharge needs. KEON Camp
[2017-04-01] MEDS: Thiamine Inj 200 MG in Dextrose 5% 50 ML IV SCH (12:19)
--- NOTE | 2017-04-01 12:47 | PCM.PNMED ---
Subjective Date of Service Apr 01, 2017 Subjective Overnight the patient rather abruptly manifested profound confusion and agitation, she was found by nursing staff scooting across the floor towards the bathroom thinking she was at home. They attempted to reorient her and were showing her things in her purse and the patient produced a knife in a nonthreatening way however when asked for the knife she became aggressive and it was difficult to wrestle the knife or a from her. From that point on patient became increasingly and profoundly altered with CIWA score in excess of 30 highly resistant to chemical restraints. Upon evaluation today the patient was profoundly altered with no awareness of situation, identifying attending physician as the drug dealer who belongs in her cellar and nursing staff as the unsavory individual who poisoned her cattle in [place]. Patient remains on CIWA protocol and is unable to supply any meaningful ROS. HR is highly reactive to agitation peaking into the 150s during wakefulness and leveling out in the 90s when sleeping. Comprehensive ROS could not be obtained in this profoundly altered patient. Exam Vital Signs Vital Sign - Last Date Time Temp Pulse Resp B/P Pulse Ox O2 Delivery O2 Flow Rate FiO2 04/01/17 08:36 Supplement Oxygen 04/01/17 08:25 37.0 151 18 160/128 98 2.00 Intake and Output 03/31/17 03/31/17 04/01/17 Cumulative From/Thru 15:00 23:00 07:00 03/30/17 14:20 - 04/01/17 06:32 Intake Total 399 ml 1040 ml 1072 ml 5646 ml Output Total 600 ml 1550 ml 2450 ml Balance 399 ml 440 ml -478 ml 3196 ml Intake Oral 1040 ml 800 ml 2240 ml IV Total 399 ml 272 ml 3406 ml Output Urine Total 600 ml 1550 ml 2450 ml # Voids 1 Exam Gen: Patient hyper alert but not at all oriented, moderate acute distress secondary to confusion and restraints Neck: Full ROM HEENT: PERRL, EOMI, no scleral icterus, mucous membranes moist CV: Irregularly irregular rhythm, no murmurs rub or gallops Resp: Tachypnea with agitation, no wheezing rales or rhonchi Abd: Difficult to assess in patient actively bradley abdomen in attempt to escape the bed Extr: [address], some new bruising on BL UE, right leg bandaged in ROLANDO wrap, moderate L LE edema with R LE obscured but appearing edematous, no cyanosis or clubbing Neuro: Acutely profoundly altered, moving all four limbs vigorously, CN 2-12 grossly intact, no focal neurologic deficit Psych: Very agitated and profoundly altered, misidentifies person place and situation IVs and Medications IV Fluids NS @ 100 ml hr running with banana bag Medications Reviewed: Medications were reviewed in detail Lab and Diagnostics Item Value Date Time Red Blood Count 3.26 mil/mm3 L 04/01/17213 Mean Corpuscular Volume 109.8 fL H 04/01/17213 Mean Corpuscular Hemoglobin 36.8 pg H 04/01/17213 Mean Corpuscular Hemoglobin Concent 33.5 % 04/01/17213 Red Cell Distribution Width 14.1 % 04/01/17213 Neutrophils (%) (Auto) 68.9 % 04/01/17213 Lymphocytes (%) (Auto) 23.4 % 04/01/17213 Monocytes (%) (Auto) 5.1 % 04/01/17213 Eosinophils (%) (Auto) 2.0 % 04/01/17213 Basophils (%) (Auto) 0.4 % 04/01/17213 Estimat Glomerular Filtration Rate 123 mL/min 04/01/17213 Calcium Level 9.0 mg/dL 04/01/17213 Phosphorus Level 1.7 mg/dL L 04/01/17213 Total Bilirubin 1.1 mg/dL 04/01/17213 Aspartate Amino Transf (AST/SGOT) 43 U/L 04/01/17213 Alanine Aminotransferase (ALT/SGPT) 26 U/L 04/01/17213 Alkaline Phosphatase 93 U/L 04/01/17213 Total Protein 6.4 g/dL 04/01/17213 Albumin 3.8 g/dL 04/01/17213 Procalcitonin 0.11 ng/mL H 04/01/17213 Result Diagram: 04/01/1721304/01/17213 X-Rays, CTs and MRIs CXR Subtle right basilar airspace disease may represent pneumonia versus atelectasis. Please correlate clinically. Dictated by: Justo Simms M.D. on 03/30/2017 at 14:21 Ankle X-ray 1. Fracture of the distal fibula of uncertain chronicity. Relative absence of soft tissue swelling over the lateral malleolus suggests possible old fracture. Recommend clinical correlation. 2. Fusion of the subtalar joint. 3. Osteopenia. Dictated by: Aniket Jaffe M.D. on 03/30/2017 at 17:40 MRI BRAIN WITHOUT CONTRAST IMPRESSION: 1. No acute intracranial disease process. 2. No areas of acute or chronic infarction. 3. Mild periventricular and subcortical white matter chronic microvascular ischemic changes. 4. Mild, diffuse volume loss. 5. Bilateral maxillary sinus mucosal thickening. Dictated by: Lima Freeman MD, PhD on 03/31/2017 at 10:25 Approved by: Lima Freeman MD, PhD on 03/31/2017 at 10:28 MRA ANGIOGRAM HEAD WITHOUT CONTRAST IMPRESSION: Negative examination. Dictated by: Lima Freeman MD, PhD on 03/31/2017 at 10:28 Approved by: Lima Freeman MD, PhD on 03/31/2017 at 10:30 . Assessment & Plan 67-year-old female who is a poor historian presents to the emergency department after being found unconscious due to atrial fib with RVR. CT and MRI of the brain have been negative which renders CVA less likely. It appears that much of her cognitive difficulty is likely related to her longstanding alcohol abuse, the patient denies alcohol consumption beyond "A couple glasses of wine with dinner and occasional drinks with friends", however these same friends have expressed great concern with her abuse in the past stating that she drinks roughly 1/2 gallon of vodka daily, and this appears to be corroborated by her clinical and laboratory evaluation. On evening of 03/31/17 patient manifested abrupt onset profoundly altered mental status which has been very difficult to control with medication, CIWA protocol initiated and patient had to be placed in 4 point restraints after threatening staff with a knife she had hidden in her purse. Acute Encephalopathy most likely secondary to alcohol withdrawal, POA, acute. Worsened -Likely secondary to acute alcohol withdrawal -Given severity and abruptness of onset cannot rule co ingested substance or withdrawal from hitherto unidentified substance such as cocaine, PCP, or synthetic such as bath salts -CIWA protocol for acute agitation -Neuro imaging negative -Patient non responsive to Narcan without opiates identified on Tox screen, not all opiates are represented on Tox screen, but negative response to Narcan would seem to preclude opiates upon presentation Alcohol abuse; present on admission; ongoing -Patient actively withdrawing -Alcohol was negative on admit -Initiated CIWA protocol due to profoundly altered mental status -Using Ativan in protocol as patient resistant to Valium -Thiamine and folate repletion IV -Social work consult for substance abuse Acute vs Subacute Memory loss most likely secondary to alcohol abuse; present on admission; ongoing -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 fib -CT of the brain without contrast pending -MRI stroke negative -Every 2 neurological checks -Continued home atorvastatin Atrial fibrillation with loss of consciousness; present admission; ongoing -Patient has a history of A. 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 -Ortho recommends non weight bearing of afflicted limb, will follow up with the patient after DC Hypertension; present on admission; ongoing -Patient was on lisinopril at home; presents with a blood pressure of 158/84 -Labetalol ordered for SBP greater than 180 -Restart lisinopril; we will monitor with diltiazem Macrocytic anemia with thrombocytosis; present admission; ongoing -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 -B12 slightly low being repleted -Iron and iron binding elevated, likely secondary to chronic alcohol use Hyperglycemia; present admission; ongoing -Patient has a questionable history of diabetes but most recent A1c was 4.8 in January -Patient's glucose was 152 on admit -Will start low-dose correctional tonight and changed to glargine if needed Hypomagnesemia; poa; ongoing -Replaced -Will continue to monitor Hyperlipidemia; poa; stable -Continue home atorvastatin Hypertension -Blood pressure has been moderately elevated with systolic blood pressures in the 150s to 160s and diastolic blood pressures in the 120s-130s. -Most likely secondary to alcohol withdrawal -Continue diltiazem IV and CIWA protocol -Continue to monitor Elevated transaminases; poa; ongoing -likely second to alcohol abuse, especially in the setting on the thrombocytopenia -trend for resolution -IVF tonight Drug dependence (ETOH) -Continue CIWA protocol and supportive care Disposition: Patient DC uncertain at this point as she appears to be suffering from acute alcohol withdrawal with profound agitation which is making it difficult to control her HR and distinguish between organic and psychiatric etiology of tachycardia. Pain Evaluation: Adequate Pain Control VTE Prophylaxis: Other (Continue home Xarelto) VTE Mechanical Devices: Intermittant Pneumatic CD Resuscitation Status: CPR: Attempt Resuscitation Attending Statement The patient was seen and examined together with Dr. Valerio on 04/01/17 and I have added additional information to the note above. James Valerio DO Apr 01, 2017 12:47 Alejandra Reyna DO Apr 01, 2017 18:54
[2017-04-01] MEDS ORDERED: [UNRECOGNIZED DRUG - OTHER] IV ONE ×5 (12:50)
[2017-04-01] MEDS ORDERED: FOLIC ACID IV ONE ×5 (12:50)
[2017-04-01] MEDS ORDERED: THIAMINE IV ONE ×5 (12:50)
[2017-04-01] MEDS ORDERED: MAGNESIUM SULFATE IV ONE ×5 (12:50)
--- NOTE | 2017-04-01 13:50 | NUR ---
MARQUITA: Patient unable to sign own MARQUITA asked SOLAR INSTALLATION TECHNICIAN to follow up with family.
--- NOTE | 2017-04-01 14:12 | NUR ---
On hold/not appropriate due to CIWA score
--- NOTE | 2017-04-01 14:58 | NUR ---
CIWA Pt has had a CIWA of 30-34 since 729 this am. So far Pt has had 120 mg Valium, 10mg of Ativan. 's aware and would like to be notified once I reach the 12mg xiomy of Ativan. Pt has had 2 40 min rest times. BP still elevated at 167/138 with a HR 149. Lobatelol will be given as soon as it comes up from pharmacy. Addendum: 04/01/17 at 1830 by RICO NATH RN BP improved after Lobetolol dose was given. paged after reaching 12mg Ativan given and said to keep doing what I have been doing all day, made Pt IMCU status.
[2017-04-02] VITALS (8 sets, daily range): BP systolic 99–157; BP diastolic 53–104; PULSE 86–141; RESP 20–26; O2SAT 95–100
--- NOTE | 2017-04-02 02:52 | NUR ---
Family/Friend/ Friend , Pam came to share information and left copy of [facility], naming the Brother of Patient as POBrenda, Was able to have telephone conference with brother , Jovanny, who Letitia states has been for 5 years, was able to shed light on his sister's PMH of excessive drinking . He was able to explain the past 15 years of drinking and denial , this information explains Letitia's behavior for the past 48 hours. pt has been living with a family member for the past year or so, her had been placed in SNF this past fall, Letitia has broken her "good" leg in June 2016 and has since neglected her health. The family member she lives with has become her drinking partner . As of the beginning of shift Letitia was give, 30 Mg IV Valium and 2 Mg IV ativan , she has been asleep most of the time, is has been necessary to have 3-4 people in the room to change her bedding as she can become combative instantly when awakened and difficult to restrain.Her life post polio has left her with impressive upper body strength , she has pinched, poked, bit , and spit at care givers. Room Air, 4 point soft restraints , mits on hands, Diltiazem Gtt @ 15, NS @ tko. Banana bag complete. Valium and ativan PRN as needed for agitation. Tele: A-Flutter 120-140 .
[2017-04-02 03:49] LABS: BASOPHILS % (AUTO) 0.6 % (0-3); EOSINOPHILS % (AUTO) 3.2 % (0-5); MONOCYTES % (AUTO) 6.7 % (4-12); Mean Corpuscular Hemoglobin 37.5 pg (27.0-35.0); NEUTROPHILS % (AUTO) 73.3 % (40-74); Platelet Count 124 bil/L (150-400)
[2017-04-02 04:06] LABS: Magnesium 1.7 mg/dL (1.6-2.6); Phosphorus 2.9 mg/dL (2.5-4.9)
[2017-04-02 04:09] LABS: INR 1.04 ratio
--- NOTE | 2017-04-02 07:49 | NUR ---
NUTRITION ASSESSMENT: ASSESS:67 YO female admitted after being found down following a shower in her home, loss of consciousness likely due to atrial fibrillation. The patient is showing increasing alcohol withdrawal symptoms, now requiring 4 point restraints after brandishing a knife at staff. CIWA protocol in effect. PMHx:Right breast calcification, benign colon polyp, post polio syndrome, alcohol abuse and dependence, type 2 diabetes, diet controlled, HTN, possible depression, A-fib with hx of RvR, right hip replacement. DIET:Consistent carbohydrate. PO intake inconsistent due to her altered mental status, 0 - 100% trays. LABS: Reviewed. Na 146, K+ 3.4, BUN 6, Glu 115, A1c 5.4, AST 78. MEDICATIONS: Reviewed. Ativan, thiamine, folate, vitamins, insulin. NUTRITION FOCUSED PHYSICAL ASSESSMENT: GI symptoms / stool: No stool reported.Americo: 14. Skin Integrity: No issues reported. ANTHROPOMETRICS: Current Wt: 87.4 kgBMI: 33.0 kg/m2.Admit weight: 88.4 kg IBW: 54.5 kg (162.1% IBW) ESTIMATED NEEDS (CLASS I OBESITY): Calories: 1200 - 1364 kcal (22 - 25 kcal / kg IBW) Protein: 98 - 109 g protein (1.8 - 2.0 g / kg IBW) Fluid: Approx. 2652 mL (30 mL / kg BW_ NUTRITION DIAGNOSIS: 1)Inadequate oral intake related to severe alcohol withdrawal requiring 4 point restraints, as evidenced by inconsistent PO intake. INTERVENTION: 1) No intervention at this time. 2) Once withdrawal begins to decrease, will consider supplements if her PO intake does not become more consistent. MONITOR/EVALUATE: Diet tolerance, PO intake, labs, GI/nutrition status. Follow up per moderate nutrition risk guidelines.
[2017-04-02] MEDS: Insulin LISPRO 300 Unit/3 mL Inj SUBQ SCH ×4 (08:00→21:54)
[2017-04-02] MEDS: Multivit-Miner-Folic Acid-Iron Tablet PO SCH (08:30)
[2017-04-02] MEDS: Diltiazem CD 240 mg ER24 Capsule PO SCH (08:30)
[2017-04-02] MEDS: Thiamine Inj 200 MG in Dextrose 5% 50 ML IV SCH (09:19)
--- NOTE | 2017-04-02 10:13 | PCM.PNMED ---
Subjective Date of Service Apr 02, 2017 Subjective The patient remained quite combative and agitated when not sufficiently sedated attempting to pinch, bite, and spit at provider. At the time of assessment this AM the patient was quite somnolent and only very minimally oriented. She is unable to provide much in the way of ROS, she does complain that her mitts are very heavy which suggests that she is not aware she is restrained. Patient's brother called and spoke with nursing staff, and reported that the patient has been drinking very heavily at home for an extended period prior to admission. Comprehensive ROS cannot be obtained due to patient's altered mental status. Exam Vital Signs Vital Sign - Last Date Time Temp Pulse Resp B/P Pulse Ox O2 Delivery O2 Flow Rate FiO2 04/02/17 08:00 36.7 99 22 116/58 100 OxyMask 3.00 Intake and Output 04/01/17 04/01/17 04/02/17 Cumulative From/Thru 15:00 23:00 07:00 03/30/17 14:20 - 04/02/17 06:15 Intake Total 1263 ml 1313 ml 8222 ml Output Total 2450 ml Balance 1263 ml 1313 ml 5772 ml Intake Oral 300 ml 2540 ml IV Total 1263 ml 1013 ml 5682 ml Output Urine Total 2450 ml # Voids 4 4 9 Exam Gen: Patient minimally alert and oriented, can identify that she is in a hospital, moderate acute distress secondary to confusion and restraints Neck: Full ROM HEENT: PERRL, EOMI, no scleral icterus, mucous membranes dry and crusted CV: Irregularly irregular rhythm, normal rate, no murmurs rub or gallops Resp: Tachypnea with agitation, no wheezing rales or rhonchi Abd: Soft, no reported tenderness, BS+ 4Q, no guarding Extr: [address], some new bruising on BL UE, right leg bandaged in ROLANDO wrap, moderate L LE edema with R LE obscured but appearing edematous, no cyanosis or clubbing Neuro: Acutely profoundly altered, moving all four limbs vigorously, CN 2-12 grossly intact, no focal neurologic deficit Psych: Patient remains very altered but improved since prior exam, significant waxing waning agitation per nursing IVs and Medications Medications Reviewed: Medications were reviewed in detail Lab and Diagnostics Item Value Date Time Red Blood Count 3.01 mil/mm3 L 04/02/17 033 Mean Corpuscular Volume 112.0 fL H 04/02/17 033 Mean Corpuscular Hemoglobin 37.5 pg H 04/02/17329 Mean Corpuscular Hemoglobin Concent 33.5 % 04/02/17329 Red Cell Distribution Width 14.1 % 04/02/17329 Neutrophils (%) (Auto) 73.3 % 04/02/17 033 Lymphocytes (%) (Auto) 15.8 % 04/02/17 033 Monocytes (%) (Auto) 6.7 % 04/02/17 033 Eosinophils (%) (Auto) 3.2 % 04/02/17 033 Basophils (%) (Auto) 0.6 % 04/02/17329 Estimat Glomerular Filtration Rate 148 mL/min 04/02/17 033 Calcium Level 8.9 mg/dL 04/02/17329 Phosphorus Level 2.9 mg/dL 04/02/17329 Magnesium Level 1.7 mg/dL 04/02/17 033 Total Bilirubin 1.2 mg/dL 04/02/17 033 Aspartate Amino Transf (AST/SGOT) 78 U/L H 04/02/17 033 Alanine Aminotransferase (ALT/SGPT) 32 U/L 04/02/17 033 Alkaline Phosphatase 79 U/L 04/02/17 033 Total Protein 6.4 g/dL 04/02/17 033 Albumin 3.5 g/dL 04/02/17 033 Prothrombin Time 11.1 sec 04/02/17 033 Prothromb Time International Ratio 1.04 ratio 04/02/17 033 Result Diagram: 04/02/17 0330 04/02/17 033 X-Rays, CTs and MRIs CXR Subtle right basilar airspace disease may represent pneumonia versus atelectasis. Please correlate clinically. Dictated by: Justo Simms M.D. on 03/30/2017 at 14:21 Ankle X-ray 1. Fracture of the distal fibula of uncertain chronicity. Relative absence of soft tissue swelling over the lateral malleolus suggests possible old fracture. Recommend clinical correlation. 2. Fusion of the subtalar joint. 3. Osteopenia. Dictated by: Aniket Jaffe M.D. on 03/30/2017 at 17:40 MRI BRAIN WITHOUT CONTRAST IMPRESSION: 1. No acute intracranial disease process. 2. No areas of acute or chronic infarction. 3. Mild periventricular and subcortical white matter chronic microvascular ischemic changes. 4. Mild, diffuse volume loss. 5. Bilateral maxillary sinus mucosal thickening. Dictated by: Lima Freeman MD, PhD on 03/31/2017 at 10:25 Approved by: Lima Freeman MD, PhD on 03/31/2017 at 10:28 MRA ANGIOGRAM HEAD WITHOUT CONTRAST IMPRESSION: Negative examination. Dictated by: Lima Freeman MD, PhD on 03/31/2017 at 10:28 Approved by: Lima Freeman MD, PhD on 03/31/2017 at 10:30 . Assessment & Plan 67-year-old female who is a poor historian presents to the emergency department after being found unconscious due to atrial fib with RVR. CT and MRI of the brain have been negative which renders CVA less likely. It appears that much of her cognitive difficulty is likely related to her longstanding alcohol abuse, the patient denies alcohol consumption beyond "A couple glasses of wine with dinner and occasional drinks with friends", however these same friends have expressed great concern with her abuse in the past stating that she drinks roughly 1/2 gallon of vodka daily, and this appears to be corroborated by her clinical and laboratory evaluation. On the evening of 03/31/17 patient manifested abrupt onset profoundly altered mental status which has been very difficult to control with medication, CIWA protocol initiated and patient had to be placed in 4 point restraints after becoming significantly combative with staff. She continues to be acutely altered with waxing waning agitation and combativeness. Acute Encephalopathy most likely secondary to alcohol withdrawal, POA, acute. Worsened -Likely secondary to acute alcohol withdrawal -Given severity and abruptness of onset cannot rule co ingested substance or withdrawal from an unidentified substance such as cocaine, PCP, or synthetics such as bath salts -CIWA protocol for acute agitation -Neuro imaging negative -Patient non responsive to Narcan without opiates identified on Tox screen, not all opiates are represented on Tox screen, but negative response to Narcan would seem to preclude opiates upon presentation Alcohol abuse; present on admission; ongoing -Brother called in and confirmed recent very heavy drinking -Patient actively withdrawing -Alcohol was negative on admit -Initiated CIWA protocol due to profoundly altered mental status CIWA score 23 -Using Ativan in protocol as patient resistant to Valium -Thiamine and folate repletion IV -Social work consult for substance abuse Acute vs Subacute Memory loss most likely secondary to alcohol abuse; present on admission; ongoing -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 fib -CT of the brain without contrast pending -MRI stroke negative -Every 2 neurological checks -Continued home atorvastatin Atrial fibrillation with loss of consciousness; present admission; ongoing -Patient has a history of A. 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 -Ortho recommends non weight bearing of afflicted limb, will follow up with the patient after DC Hypertension; present on admission; ongoing -Patient was on lisinopril at home; presents with a blood pressure of 158/84 -Labetalol ordered for SBP greater than 180 -Restart lisinopril once patient is no longer mentally altered; we will monitor with diltiazem Macrocytic anemia with thrombocytosis; present admission; ongoing -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 -B12 slightly low being repleted -Iron and iron binding elevated, likely secondary to chronic alcohol use Hyperglycemia; present admission; ongoing -Patient has a questionable history of diabetes but most recent A1c was 4.8 in January -Patient's glucose was 152 on admit -Continue low-dose correctional tonight and changed to glargine if needed Hypomagnesemia; poa; ongoing -Replaced -Will continue to monitor Hyperlipidemia; poa; stable -Continue home atorvastatin Hypertension -Blood pressure has been moderately elevated with systolic blood pressures in the 150s to 160s and diastolic blood pressures in the 120s-130s. -Most likely secondary to alcohol withdrawal -Continue diltiazem IV and CIWA protocol -Continue to monitor Elevated transaminases; poa; ongoing -likely second to alcohol abuse, especially in the setting on the thrombocytopenia -trend for resolution Drug dependence (ETOH) -Continue CIWA protocol and supportive care Disposition: Patient DC uncertain at this point as she appears to be suffering from acute alcohol withdrawal with profound agitation which is making it difficult to control her HR and distinguish between organic and psychiatric etiology of tachycardia. VTE Prophylaxis: Other (Continue home Xarelto) VTE Mechanical Devices: Intermittant Pneumatic CD Resuscitation Status: CPR: Attempt Resuscitation Attending Statement The patient was seen and examined together with Dr. Valerio on 04/02/17 and I have added additional information to the note above. James Valerio DO Apr 02, 2017 10:13 Alejandra Reyna DO Apr 03, 2017 16:51
--- NOTE | 2017-04-02 13:56 | NUR ---
Social Work: Initial Assessment D: BAGGAGE SCREENER spoke with pt's brother via telephone to complete assessment. Pt's brother states that the patient lives at home with her niece. He states that at her baseline the pt uses crutches however over the last several months he and other family members have noticed a sharp decline in the pt's mobility. He states that she uses a wheelchair now and rarely leaves the couch. He confirms that the pt "drinks very heavily" and has "repeatedly refused" help or services from family. He states that the pt's niece who lives in the home is also an alcoholic, who supplies alcohol and drinks heavily with the patient. He estimates that the pt drinks 1/2 fifth of hard alcohol daily. He states that because of the pt's drinking she has had many falls, some of which were in the shower, along with periods of time where the pt does not eat and fails to meet her ADLs, specifically surrounding nutrition. He states that the pt has made him her DPOA for medical care and that he has this paperwork. BAGGAGE SCREENER encouraged him to provide this for the pt's chart. Brother states that he has spoken with an transactional attorney about getting guardianship over the pt however learned that because she was decisional, was not a candidate for this. Pt's has not been oriented during admission and actively withdrawing from alcohol. Based on pt's recent admissions, severity of ETOH use with decreased level of functioning and decreased ADLS, BAGGAGE SCREENER has made a report to APS based on criteria for self-neglect. is aware of this and agrees with decision to make report. Online Reporting Reference #[id number] A: Pt who was previously living at home with a niece P: BAGGAGE SCREENER to continue to follow pt's clinical progress and assist with safe discharge planning and CD assessment when pt is appropriate. BAGGAGE SCREENER to follow up with APS re: self-neglect report. KEON Camp Addendum: 04/02/17 at 1422 by TELLY KNIGHT SS Amended: Links added.
[2017-04-02] MEDS: Diltiazem Inj 125 MG in 0.9% Sodium Chloride 100 ML, Pharmacy To Mix 1 EA IV SCH (18:10)
--- NOTE | 2017-04-02 19:02 | NUR ---
P: Resp,cardiac, Neuro, Nutrition, I,E: Pt on room air, sats in the mid to high 90's occ drops to low 90's when sleeping and then comes straight back up. Pt is in a flutter in the 100's, does go up to 140's when agitated. Pt was restless this am and a little combative, with CIWAs in the 20's, this evening she is co operative and not obviously restless. She is confused to place and date but is oriented to self, and at times to place.
[2017-04-02] MEDS ORDERED: Heparin 5,000 Unit/mL Inj SUBQ SCH (19:35)
[2017-04-03] VITALS (9 sets, daily range): BP systolic 98–131; BP diastolic 64–82; PULSE 82–113; RESP 18–20; O2SAT 95–100
[2017-04-03 02:49] LABS: BASOPHILS % (AUTO) 0.3 % (0-3); EOSINOPHILS % (AUTO) 4.9 % (0-5); MONOCYTES % (AUTO) 9.1 % (4-12); Mean Corpuscular Volume 110.3 fL (81-100); NEUTROPHILS % (AUTO) 66.8 % (40-74); Platelet Count 153 bil/L (150-400)
[2017-04-03 03:08] LABS: Magnesium 1.4 mg/dL (1.6-2.6); Phosphorus 4.2 mg/dL (2.5-4.9)
[2017-04-03] MEDS: Diltiazem Inj 125 MG in 0.9% Sodium Chloride 100 ML, Pharmacy To Mix 1 EA IV SCH (05:33)
[2017-04-03] MEDS ORDERED: Potassium Chloride Oral 20 mEq SR Tab(K 3 - 3.7 & Creat < 2) PO ONE (06:10)
--- NOTE | 2017-04-03 07:13 | NUR ---
Cardiac /CIWA / Restraints/ K+ Remains A-Flutter with HR 90s-80s. Diltiazem gtt was 15 mg/hr. Drip weaned down to 5 mg/hr. HR 90s. VSS. Pt remains confused with moments of lucidity. She exhibited hallucination. She was cooperative with care, thus soft wrist restraints discontinued. Sitter at the bedside for safety. K+=3.0. Replacement protocol initiated. Tolerating PO intake well. No overt complications noted.
[2017-04-03] MEDS ORDERED: Magnesium Sulf 2 Gm/50mL Water 2 GM in IV Premix 1 EACH IV ONE (07:20)
[2017-04-03] MEDS: Insulin LISPRO 300 Unit/3 mL Inj SUBQ SCH ×4 (08:00→21:16)
[2017-04-03] MEDS: Multivit-Miner-Folic Acid-Iron Tablet PO SCH (08:42)
[2017-04-03] MEDS: Diltiazem CD 240 mg ER24 Capsule PO SCH (08:45)
[2017-04-03] MEDS ORDERED: Potassium Chloride 20 mEq SR Tablet PO ONE (09:15)
--- NOTE | 2017-04-03 09:55 | NUR ---
Evaluation completed. Please go to "Notes" then click on "Assessments and Notes" (bottom left corner of screen). Then select appropriate discipline tab on top of screen.
--- NOTE | 2017-04-03 13:16 | PCM.PNMED ---
Subjective Date of Service Apr 03, 2017 Subjective Mrs Cancino is significantly improved compared to yesterday in regards to her mental status and combativeness, she remains confused and disoriented but is markedly more tractable and docile today such that her restraints were removed without incident. Her heart rate is less labile today with some sustained periods in the 70s but predominantly in the 90s. No significant overnight events Comprehensive ROS negative except as outlined above. Exam Vital Signs Vital Sign - Last Date Time Temp Pulse Resp B/P Pulse Ox O2 Delivery O2 Flow Rate FiO2 04/03/17 11:58 36.7 82 20 98/65 97 Room Air 04/02/17 08:00 3.00 Intake and Output 04/02/17 04/02/17 04/03/17 Cumulative From/Thru 15:00 23:00 07:00 03/30/17 14:20 - 04/03/17 06:47 Intake Total 1027 ml 660 ml 9909 ml Output Total 800 ml 3250 ml Balance 1027 ml -140 ml 6659 ml Intake Oral 666 ml 200 ml 3406 ml IV Total 361 ml 460 ml 6503 ml Output Urine Total 800 ml 3250 ml # Voids 4 13 Exam Gen: Patient more alert and oriented today, but remains confused, NAD Neck: Full ROM HEENT: PERRL, EOMI, no scleral icterus, mucous membranes dry and crusted CV: Irregularly irregular rhythm, normal rate, no murmurs rub or gallops Resp: Tachypnea with agitation, no wheezing rales or rhonchi Abd: Soft, no reported tenderness, BS+ 4Q, no guarding Extr: right leg bandaged in ROLANDO wrap, moderate L LE edema with R LE obscured but appearing edematous, no cyanosis or clubbing Neuro: Acutely profoundly altered, moving all four limbs vigorously, CN 2-12 grossly intact, no focal neurologic deficit Psych: Patient remains very altered but improved since prior exam, very waxing waning agitation per nursing IVs and Medications Medications Reviewed: Medications were reviewed in detail Lab and Diagnostics Item Value Date Time Red Blood Count 3.19 mil/mm3 L 04/03/17234 Mean Corpuscular Volume 110.3 fL H 04/03/17234 Mean Corpuscular Hemoglobin 37.0 pg H 04/03/17234 Mean Corpuscular Hemoglobin Concent 33.5 % 04/03/17234 Red Cell Distribution Width 14.4 % 04/03/17234 Monocytes (%) (Auto) 9.1 % 04/03/17234 Lymphocytes (%) (Auto) 18.6 % 04/03/17234 Neutrophils (%) (Auto) 66.8 % 04/03/17234 Eosinophils (%) (Auto) 4.9 % 04/03/17234 Basophils (%) (Auto) 0.3 % 04/03/17234 Estimat Glomerular Filtration Rate 142 mL/min 04/03/17234 Calcium Level 9.2 mg/dL 04/03/17234 Phosphorus Level 4.2 mg/dL 04/03/17234 Magnesium Level 1.4 mg/dL L 04/03/17234 Total Bilirubin 1.0 mg/dL 04/03/17234 Aspartate Amino Transf (AST/SGOT) 66 U/L H 04/03/17234 Alkaline Phosphatase 82 U/L 04/03/17234 Alanine Aminotransferase (ALT/SGPT) 31 U/L 04/03/17234 Total Protein 5.9 g/dL L 04/03/17234 Albumin 3.4 g/dL 04/03/17234 Result Diagram: 04/03/1723404/03/17234 X-Rays, CTs and MRIs CXR Subtle right basilar airspace disease may represent pneumonia versus atelectasis. Please correlate clinically. Dictated by: Justo Simms M.D. on 03/30/2017 at 14:21 Ankle X-ray 1. Fracture of the distal fibula of uncertain chronicity. Relative absence of soft tissue swelling over the lateral malleolus suggests possible old fracture. Recommend clinical correlation. 2. Fusion of the subtalar joint. 3. Osteopenia. Dictated by: Aniket Jaffe M.D. on 03/30/2017 at 17:40 MRI BRAIN WITHOUT CONTRAST IMPRESSION: 1. No acute intracranial disease process. 2. No areas of acute or chronic infarction. 3. Mild periventricular and subcortical white matter chronic microvascular ischemic changes. 4. Mild, diffuse volume loss. 5. Bilateral maxillary sinus mucosal thickening. Dictated by: Lima Freeman MD, PhD on 03/31/2017 at 10:25 Approved by: Lima Freeman MD, PhD on 03/31/2017 at 10:28 MRA ANGIOGRAM HEAD WITHOUT CONTRAST IMPRESSION: Negative examination. Dictated by: Lima Freeman MD, PhD on 03/31/2017 at 10:28 Approved by: Lima Freeman MD, PhD on 03/31/2017 at 10:30 . Assessment & Plan 67-year-old female who is a poor historian presents to the emergency department after being found unconscious due to atrial fib with RVR. CT and MRI of the brain have been negative which renders CVA less likely. It appears that much of her cognitive difficulty is likely related to her longstanding alcohol abuse, the patient denies alcohol consumption beyond "A couple glasses of wine with dinner and occasional drinks with friends", however these same friends have expressed great concern with her abuse in the past stating that she drinks roughly 1/2 gallon of vodka daily, and this appears to be corroborated by her clinical and laboratory evaluation. On evening of 03/31/17 patient manifested abrupt onset profoundly altered mental status which has been very difficult to control with medication, CIWA protocol initiated and patient had to be placed in 4 point restraints due to aggressive behavior. She continues to be acutely altered with waxing waning agitation and combativeness. Acute Encephalopathy most likely secondary to alcohol withdrawal, POA, acute. Worsened -Likely secondary to acute alcohol withdrawal -Given severity and abruptness of onset cannot rule out ingested substance or withdrawal from an unidentified substance such as cocaine, PCP, or synthetics such as bath salts -CIWA protocol for acute agitation -Neuro imaging negative -Patient non responsive to Narcan without opiates identified on Tox screen, not all opiates are represented on Tox screen, but negative response to Narcan would seem to preclude opiates upon presentation Alcohol abuse; present on admission; ongoing -CIWA less than 10 today -Brother called in and confirmed recent very heavy drinking -Patient actively withdrawing -Alcohol was negative on admit -Initiated CIWA protocol due to profoundly altered mental status -Using Ativan in protocol as patient resistant to Valium -Thiamine and folate repletion IV -Social work consult for substance abuse Acute vs Subacute Memory loss most likely secondary to alcohol abuse; present on admission; ongoing -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 fib -CT of the brain without contrast pending -MRI stroke negative -Every 2 neurological checks -Continued home atorvastatin Atrial fibrillation with loss of consciousness; present admission; ongoing -Patient has a history of A. fib and outpatient records; found unresponsive after showering at home with heart rate between 180 and 280 -Home meds include 240 mg of diltiazem ER and Xarelto -Patient initially on Diltiazem drip, transitioned to PO, transitioned back to Drip once patient became altered and refusing medications -Will attempt to transition back to PO once patient no longer has altered mentation. 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 -Ortho recommends non weight bearing of afflicted limb, will follow up with the patient after DC Hypertension; present on admission; ongoing -Patient was on lisinopril at home; presents with a blood pressure of 158/84 -Labetalol ordered PRN for SBP greater than 180 -Restart lisinopril once patient is compliant with PO medications; we will monitor with diltiazem Macrocytic anemia with thrombocytosis; present admission; ongoing -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 -B12 slightly low being repleted -Iron and iron binding elevated, likely secondary to chronic alcohol use Hyperglycemia; present admission; ongoing -Patient has a questionable history of diabetes but most recent A1c was 4.8 in January -Patient's glucose was 152 on admit -Continue low-dose correctional and changed to glargine if needed Hypomagnesemia; poa; ongoing -Replaced -Will continue to monitor Hyperlipidemia; poa; stable -Continue home atorvastatin Elevated transaminases; poa; ongoing -likely second to alcohol abuse, especially in the setting on the thrombocytopenia -trend for resolution Drug dependence (ETOH) -Continue CIIN protocol and supportive care Disposition: Patient DC uncertain at this point as she appears to be suffering from acute alcohol withdrawal with profound agitation which is making it difficult to control her HR and distinguish between organic and psychiatric etiology of tachycardia. Pain Evaluation: Adequate Pain Control VTE Prophylaxis: Other (Continue home Xarelto) VTE Mechanical Devices: Intermittant Pneumatic CD Resuscitation Status: CPR: Attempt Resuscitation Attending Statement The patient was seen and examined together with Dr. Valerio on 04/03/17 and I have added additional information to the note above. James Valerio DO Apr 03, 2017 13:16 Alejandra Reyna DO Apr 03, 2017 16:41
[2017-04-04] VITALS (9 sets, daily range): BP systolic 104–165; BP diastolic 58–141; PULSE 99–150; RESP 16–21; O2SAT 97–100
[2017-04-04 02:59] LABS: BASOPHILS % (AUTO) 0.4 % (0-3); MONOCYTES % (AUTO) 10.5 % (4-12); Mean Corpuscular Hemoglobin 37.1 pg (27.0-35.0); Mean Corpuscular Volume 110.9 fL (81-100); NEUTROPHILS % (AUTO) 58.4 % (40-74); Platelet Count 175 bil/L (150-400)
[2017-04-04 03:11] LABS: INR 1.2 ratio
[2017-04-04] MEDS ORDERED: Diltiazem 5 mg/mL 5 mL Inj IVPUSH PRN (03:25)
[2017-04-04 03:30] LABS: Magnesium 1.4 mg/dL (1.6-2.6); Phosphorus 4.3 mg/dL (2.5-4.9)
[2017-04-04] MEDS ORDERED: Magnesium Sulf 4 Gm/100 mL H2O 4 GM in IV Premix 1 EACH IV ONE (06:45)
--- NOTE | 2017-04-04 07:31 | NUR ---
Mentation Pt clearer tonight. She is able to make her needs known. She still have moments of confusion but easy to reorient and redirect. VSS. HR up 140s. notified received order for Diltiazem IVP PRN. 5 mg given. HR down 100s-90s. No overt complications noted.
[2017-04-04] MEDS: Insulin LISPRO 300 Unit/3 mL Inj SUBQ SCH ×4 (08:00→20:25)
[2017-04-04] MEDS: Multivit-Miner-Folic Acid-Iron Tablet PO SCH (08:36)
[2017-04-04] MEDS: Diltiazem CD 240 mg ER24 Capsule PO SCH (08:38)
[2017-04-04] MEDS ORDERED: Diltiazem CD 300 mg ER24 Capsule PO ONE (13:50)
--- NOTE | 2017-04-04 13:55 | PCM.PNMED ---
Subjective Date of Service Apr 04, 2017 Subjective Overnight patient was continued to improve. Currently she is awake and conversive although she states she feels tired and groggy. She is able to get up and ambulate with help. She can make it to the commode. Patient also remains tachycardia with a mildly elevated blood pressure. Exam Vital Signs Vital Sign - Last Date Time Temp Pulse Resp B/P Pulse Ox O2 Delivery O2 Flow Rate FiO2 04/04/17 11:40 36.7 148 21 165/141 97 Room Air 04/02/17 08:00 3.00 Intake and Output 04/03/17 04/03/17 04/04/17 Cumulative From/Thru 15:00 23:00 07:00 03/30/17 14:20 - 04/04/17 05:21 Intake Total 497 ml 37170 ml Output Total 3250 ml Balance 497 ml 7156 ml Intake Oral 300 ml 3706 ml IV Total 197 ml 6700 ml Output Urine Total 3250 ml # Voids 0 13 # Bowel Movements 0 0 Exam Gen: Patient more alert and oriented today, but remains confused, NAD CV: Irregularly irregular rhythm, normal rate, no murmurs rub or gallops Resp: Tachypnea with agitation, no wheezing rales or rhonchi Abd: Soft, no reported tenderness, BS+ 4Q, no guarding Extr: right leg bandaged in ROLANDO wrap, moderate L LE edema with R LE obscured but appearing edematous, no cyanosis or clubbing Neuro: no focal neurologic deficit Psych: greatly improved with mild agitation IVs and Medications Medications Reviewed: Medications were reviewed in detail Lab and Diagnostics Result Diagram: 04/04/17 0240 04/04/17 0240 X-Rays, CTs and MRIs CXR Subtle right basilar airspace disease may represent pneumonia versus atelectasis. Please correlate clinically. Dictated by: Justo Simms M.D. on 03/30/2017 at 14:21 Ankle X-ray 1. Fracture of the distal fibula of uncertain chronicity. Relative absence of soft tissue swelling over the lateral malleolus suggests possible old fracture. Recommend clinical correlation. 2. Fusion of the subtalar joint. 3. Osteopenia. Dictated by: Aniket Jaffe M.D. on 03/30/2017 at 17:40 MRI BRAIN WITHOUT CONTRAST IMPRESSION: 1. No acute intracranial disease process. 2. No areas of acute or chronic infarction. 3. Mild periventricular and subcortical white matter chronic microvascular ischemic changes. 4. Mild, diffuse volume loss. 5. Bilateral maxillary sinus mucosal thickening. Dictated by: Lima Freeman MD, PhD on 03/31/2017 at 10:25 Approved by: Lima Freeman MD, PhD on 03/31/2017 at 10:28 MRA ANGIOGRAM HEAD WITHOUT CONTRAST IMPRESSION: Negative examination. Dictated by: Lima Freeman MD, PhD on 03/31/2017 at 10:28 Approved by: Lima Freeman MD, PhD on 03/31/2017 at 10:30 . Assessment & Plan 67-year-old female who is a poor historian presents to the emergency department after being found unconscious due to atrial fib with RVR. CT and MRI of the brain have been negative which renders CVA less likely. It appears that much of her cognitive difficulty is likely related to her longstanding alcohol abuse, the patient denies alcohol consumption beyond "A couple glasses of wine with dinner and occasional drinks with friends", however these self same friends have expressed great concern with her abuse in the past stating that she drinks roughly a 1/2 gallon of vodka daily, and this appears to be corroborated by her clinical and laboratory evaluation. Atrial fibrillation with loss of consciousness; present admission; ongoing -Patient has a history of A. fib and outpatient records; found unresponsive after showering at home with heart rate between 180 and 280 -Home meds include 240 mg of diltiazem ER and Xarelto -Patient initially on Diltiazem drip -Converted to PO Diltiazem; gave additional 60mg 04/04/17; increased to diltiazem 300 mg tomorrow -Continue Xarelto Alcohol abuse with withdrawal; present on admission; ongoing -Per roomate; pt drinks half gallon of vodka daily -Pt withdrew and is completing withdrawal; CIWA protocol used current CIWA score is 3 -Alcohol was negative on admit -Thiamine and folate repleted -Social work consult for substance abuse -Likely cause of ongoing tachycardia Acute vs Subacute Memory loss; present on admission; ongoing -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 Hypertension; present on admission; ongoing -Patient was on lisinopril at home; presents with a blood pressure of 158/84 -Labetalol ordered for SBP greater than 180 -Restart lisinopril; we will monitor with diltiazem Macrocytic anemia with thrombocytosis; present admission; ongoing -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 -Ordered B12/folate as well as iron studies -Iron and iron binding elevated, likely secondary to chronic alcohol use Hyperglycemia; present admission; ongoing -Patient has a questionable history of diabetes but most recent A1c was 4.8 in January -Patient's glucose was 152 on admit -Will start low-dose correctional tonight and changed to glargine if needed -Patient maintaining BG below 140 for the most part Hypomagnesemia; poa; ongoing -Replaced -Will continue to monitor Hyperlipidemia; poa; stable -Continue home atorvastatin Elevated transaminases; poa; ongoing -likely second to alcohol abuse, especially in the setting on the thrombocytopenia -trend for resolution -IVF tonight Disposition: Likely discharge in a day to 2 days after rate controlled; anticipate no needs; sounds like APS is being contacted about the room mate allowing her to drink to excess VTE Prophylaxis: Other (Continue home Xarelto) VTE Mechanical Devices: Intermittant Pneumatic CD Resuscitation Status: CPR: Attempt Resuscitation Attending Statement The patient was seen and examined together with Dr. Valdivia on 04/04/2017 and I have added additional information to the note above. Nikhil Valdivia DO Apr 04, 2017 13:55 Alejandra Reyna DO Apr 04, 2017 16:35
--- NOTE | 2017-04-04 16:30 | NUR ---
MARQUITA Signed KEON Cavazos
--- NOTE | 2017-04-04 16:30 | NUR ---
Social Work Note: Substance Use Order Current Circumstances: Letitia Cancino is a 67 year old female admitted on 03/30/2017 for Aflutter with RVR. SW received MD order to discuss substance Use hx with pt and offer resources. Hx of substance use: Pt drinks 2-3 vodka Pepsi's daily for the last few months since her mother and her closest friend moved into a memory care unit. Hx of tx programs/Detox: NA Hx of w/d symptoms: Pt was under [facility] protocol during this hospitalization. Pt currently 0. Pt has never experienced withdrawal before and so it is difficult for her to identify specific symptoms associated with alcohol withdrawal. Family hx: NA Hx of sobriety and supports: Pt biggest support is her niece Caitie who now lives with her. She provides emotional and social supports for pt after her recent losses. Patients perception of the consequences of use: Pt does appear to have good insight into the amount of alcohol she consumes and the connection to her decline in health. However, pt declined any resources. Suicide Risk: Pt denies any SI or thoughts of harming herself or others. Pt explained " I am more angry than depressed." Pt goes to her niece Caitie for support when needed. Motivation for tx: Pt declined any resources for extra support after discharge for her resent losses or her alcohol intake. Pt declines any needs at this time. Discharge Plan: Anticipated discharge home with family support and home health vs. SNF pending MD orders. SW to continue to follow. KEON Cavazos
[2017-04-04] MEDS: Diltiazem Inj 125 MG in 0.9% Sodium Chloride 100 ML, Pharmacy To Mix 1 EA IV SCH (20:26)
[2017-04-05] VITALS (8 sets, daily range): BP systolic 109–134; BP diastolic 70–99; PULSE 107–154; RESP 16–21; O2SAT 95–99
[2017-04-05 03:08] LABS: BASOPHILS % (AUTO) 0.2 % (0-3); EOSINOPHILS % (AUTO) 3.8 % (0-5); MONOCYTES % (AUTO) 12.8 % (4-12); Mean Corpuscular Hemoglobin 36.4 pg (27.0-35.0); Mean Corpuscular Volume 110.9 fL (81-100); NEUTROPHILS % (AUTO) 55.4 % (40-74); Platelet Count 195 bil/L (150-400)
[2017-04-05 03:29] LABS: Magnesium 1.6 mg/dL (1.6-2.6); Phosphorus 4.8 mg/dL (2.5-4.9)
--- NOTE | 2017-04-05 06:42 | NUR ---
Fall Pt is confused and delirious. Approx at 2300 Bed alarm was alarming. This journalists and other writers attended promptly; Pt was found sitting on the floor on her buttocks with the bed against her back. Pt stated she was trying to get her dogs. She stated she thought she was at home and thats how she transfers herself at home. No apparent injuries noted. No changes on ROM noted. MD notified. No new orders at this time.
[2017-04-05] MEDS: Insulin LISPRO 300 Unit/3 mL Inj SUBQ SCH ×4 (08:00→21:57)
[2017-04-05] MEDS: Multivit-Miner-Folic Acid-Iron Tablet PO SCH (08:48)
[2017-04-05] MEDS: Diltiazem CD 300 mg ER24 Capsule PO SCH (08:48)
--- NOTE | 2017-04-05 13:53 | NUR ---
Gave access and faxed facesheet to [facility], [facility], [facility] and [facility] per DISPENSING OPTICIAN and MD order. Addendum: 04/05/17 at 1459 by SANDEEP HONG CM [facility] can accept with to follow [facility] would like to come on 04/06 for onsite and bedside assessment of patient. [facility] is following and would like to see if patient clears and do bedside assessment with onsite Updated DISPENSING OPTICIAN Addendum: 04/05/17 at 1608 by SANDEEP HONG CM [facility] can accept patient with to follow Updated DISPENSING OPTICIAN
--- NOTE | 2017-04-05 14:37 | NUR ---
Social Work Note: Continued Discharge Planning Data& Assessment: SW received MD order to help coordinate SNF placement for pt to receive rehab. SW met with pt and pt friend Bayron and presented SNF list for preferences. Pt preferences are for 1. [facility], 2. [facility], 3. [facility], 4. [facility]. Pt is also thinking about a SNF in [place]. SW explained to Pt and pt friend that due to pt insurance, we may have to send referrals to other facilities if pt preferred facilities are unable to accept her. Pt confirmed understanding. Pt denies any other needs a this time. SW to continue to follow. Plan: Anticipated discharge to SNF when medically ready pending acceptance. Pt denies any other needs a this time. SW to continue to follow. KEON Cavazos
--- NOTE | 2017-04-05 15:10 | NUR ---
Received VM from Brent at [facility], pt has been assigned to Iva Infante, case#[id number]. Advised LIBRARY HISTORIAN/
--- NOTE | 2017-04-05 15:41 | NUR ---
Mentation/Tele Pt alert, CIWA 1. Forgetful, not impulsive; no attempts to get OOB without assistance. 2 PA to tsfr to [facility]. HR Aflutter 1-teens to 150s with activity. Pt denies pain/discomfort, denies n/v/d, denies dizziness/lightheadedness. BP stable.
--- NOTE | 2017-04-05 15:45 | PCM.PNMED ---
Subjective Date of Service Apr 05, 2017 Subjective Mrs. Cancino is quite a bit more lucid and cogent today upon initial evaluation , however she will intermittently become confused and wonder "who are all these people in my house". The patient expressed disbelief with accounts of her actions during alcohol withdrawal were related back to her. She states that she is otherwise well with no specific complaints beyond weakness compared to baseline. No significant overnight events Comprehensive ROS negative except as listed above. Exam Vital Signs Vital Sign - Last Date Time Temp Pulse Resp B/P Pulse Ox O2 Delivery O2 Flow Rate FiO2 04/05/17 13:07 36.7 117 21 127/99 95 Room Air 04/02/17 08:00 3.00 Intake and Output 04/04/17 04/04/17 04/05/17 Cumulative From/Thru 15:00 23:00 07:00 03/30/17 14:20 - 04/05/17 06:42 Intake Total 400 ml 826 ml 150 ml 86605 ml Output Total 650 ml 450 ml 275 ml 4625 ml Balance -250 ml 376 ml -125 ml 7157 ml Intake Oral 400 ml 680 ml 150 ml 4936 ml IV Total 146 ml 6846 ml Output Urine Total 650 ml 450 ml 275 ml 4625 ml # Voids 3 2 5 23 # Bowel Movements 1 1 Exam Gen: Patient more alert and oriented today, maintains some waxing waning mental status but overall much improved. Neck: Full ROM HEENT: PERRL, EOMI, no scleral icterus, mucous membranes dry and crusted CV: Irregularly irregular rhythm, tachycardia around 120, no murmurs rub or gallops Resp: Tachypnea with agitation, no wheezing rales or rhonchi Abd: Soft, no reported tenderness, BS+ 4Q, no guarding Extr: right leg bandaged in ROLANDO wrap, moderate L LE edema with R LE obscured but appearing edematous, no cyanosis or clubbing Neuro: CN 2-12 grossly intact, no focal neurologic deficit Psych: Patient appears receptive to advice about alcohol cessation and much more accepting that alcohol is a problem for her compared to before her withdrawal process. IVs and Medications Medications Reviewed: Medications were reviewed in detail Lab and Diagnostics Item Value Date Time Red Blood Count 3.21 mil/mm3 L 04/05/17 0250 Mean Corpuscular Volume 110.9 fL H 04/05/17 0250 Mean Corpuscular Hemoglobin 36.4 pg H 04/05/17249 Mean Corpuscular Hemoglobin Concent 32.9 % 04/05/17249 Red Cell Distribution Width 14.8 % 04/05/17249 Neutrophils (%) (Auto) 55.4 % 04/05/17249 Lymphocytes (%) (Auto) 27.2 % 04/05/17249 Monocytes (%) (Auto) 12.8 % H 04/05/17249 Eosinophils (%) (Auto) 3.8 % 04/05/17 025 Basophils (%) (Auto) 0.2 % 04/05/17249 Estimat Glomerular Filtration Rate 114 mL/min 04/05/17249 Calcium Level 9.5 mg/dL 04/05/17249 Phosphorus Level 4.8 mg/dL 04/05/17249 Magnesium Level 1.6 mg/dL 04/05/17249 Total Bilirubin 0.7 mg/dL 04/05/17249 Aspartate Amino Transf (AST/SGOT) 117 U/L H 04/05/17249 Alanine Aminotransferase (ALT/SGPT) 43 U/L H 04/05/17249 Total Protein 6.2 g/dL L 04/05/17249 Albumin 3.4 g/dL 04/05/17249 Procalcitonin 0.07 ng/mL 04/05/17 025 Result Diagram: 04/05/17 02504/05/17249 X-Rays, CTs and MRIs CXR Subtle right basilar airspace disease may represent pneumonia versus atelectasis. Please correlate clinically. Dictated by: Justo Simms M.D. on 03/30/2017 at 14:21 Ankle X-ray 1. Fracture of the distal fibula of uncertain chronicity. Relative absence of soft tissue swelling over the lateral malleolus suggests possible old fracture. Recommend clinical correlation. 2. Fusion of the subtalar joint. 3. Osteopenia. Dictated by: Aniket Jaffe M.D. on 03/30/2017 at 17:40 MRI BRAIN WITHOUT CONTRAST IMPRESSION: 1. No acute intracranial disease process. 2. No areas of acute or chronic infarction. 3. Mild periventricular and subcortical white matter chronic microvascular ischemic changes. 4. Mild, diffuse volume loss. 5. Bilateral maxillary sinus mucosal thickening. Dictated by: Lima Freeman MD, PhD on 03/31/2017 at 10:25 Approved by: Lima Freeman MD, PhD on 03/31/2017 at 10:28 MRA ANGIOGRAM HEAD WITHOUT CONTRAST IMPRESSION: Negative examination. Dictated by: Lima Freeman MD, PhD on 03/31/2017 at 10:28 Approved by: Lima Freeman MD, PhD on 03/31/2017 at 10:30 . Assessment & Plan 67-year-old female who is a poor historian presents to the emergency department after being found unconscious due to atrial fib with RVR. CT and MRI of the brain have been negative which renders CVA less likely. It appears that much of her cognitive difficulty is likely related to her longstanding alcohol abuse, the patient initially denied alcohol consumption beyond "A couple glasses of wine with dinner and occasional drinks with friends" now much more receptive to concerns about her alcohol consumption following withdrawal process. Rate control of her Afib remains a problem with rates >150 with any kind of activity. Atrial fibrillation with loss of consciousness; present admission; ongoing -Patient has a history of A. fib and outpatient records; found unresponsive after showering at home with heart rate between 180 and 280 -Home meds include 240 mg of diltiazem ER and Xarelto -Patient initially on Diltiazem drip -Converted to PO Diltiazem; gave additional 60mg 04/04/17; increased to diltiazem 300 mg -Will consider dual gissel blockage or amiodarone following cardiology consult if patient continues to manifest difficult to control rate -Continue Xarelto Alcohol abuse with withdrawal; present on admission; ongoing -Per roomate; pt drinks half gallon of vodka daily -Pt withdrew and is completing withdrawal; CIWA protocol used current CIWA score is 3 -Alcohol was negative on admit -Thiamine and folate repleted -Social work consult for substance abuse -Likely contributor towards ongoing tachycardia Acute vs Subacute Memory loss; present on admission; ongoing -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 -Patient would likely benefit from placement in a SNF upon DC for continued rehabilitation and PT Hypertension; present on admission; ongoing -Patient was on lisinopril at home; presents with a blood pressure of 158/84 -Labetalol ordered for SBP greater than 180 -Restart lisinopril; we will monitor with diltiazem Macrocytic anemia with thrombocytosis; present admission; ongoing -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 -Ordered B12/folate as well as iron studies -Iron and iron binding elevated, likely secondary to chronic alcohol use Hyperglycemia; present admission; ongoing -Patient has a questionable history of diabetes but most recent A1c was 4.8 in January -Patient's glucose was 152 on admit -Will start low-dose correctional tonight and changed to glargine if needed -Patient maintaining BG below 140 for the most part Hypomagnesemia; poa; ongoing -Replaced -Will continue to monitor Hyperlipidemia; poa; stable -Continue home atorvastatin Elevated transaminases; poa; ongoing -likely second to alcohol abuse, especially in the setting on the thrombocytopenia -trend for resolution Disposition: Likely DC in 1-2 days, hopefully to SNF though this will take some convincing. Ongoing concerns for cohabitation with her niece who appears to be her primary source of alcohol. Pain Evaluation: Adequate Pain Control VTE Prophylaxis: Other (Continue home Xarelto) VTE Mechanical Devices: Intermittant Pneumatic CD Resuscitation Status: CPR: Attempt Resuscitation Attending Statement The patient was seen and examined together with Dr. Valerio on 04/05/2017 and I agree with the history, exam and plan as outlined in the note above. . James Valerio DO Apr 05, 2017 15:44 En Jama MD Apr 06, 2017 08:03
--- NOTE | 2017-04-05 23:31 | PCM.PNMED ---
Subjective Date of Service Apr 05, 2017 Subjective I was contacted to review if patient was appropriate to transfer to another floor. I reviewed medical teams note, patient vitals, and plan. Patient was seen and deemed stable. She is not on any medications or receiving interventions that continue to necessitate PCC Status. If she has worsening of her conditions, ie, uncontrolled Afib, she will be move back to [facility] for necessary medication treatment. Exam Vital Signs Vital Sign - Last Date Time Temp Pulse Resp B/P Pulse Ox O2 Delivery O2 Flow Rate FiO2 04/05/17 22:48 109 04/05/17 21:54 37.3 18 125/81 97 Room Air 04/02/17 08:00 3.00 Intake and Output 04/04/17 04/04/17 04/05/17 Cumulative From/Thru 15:00 23:00 07:00 03/30/17 14:20 - 04/05/17 06:42 Intake Total 400 ml 826 ml 150 ml 10383 ml Output Total 650 ml 450 ml 275 ml 4625 ml Balance -250 ml 376 ml -125 ml 7157 ml Intake Oral 400 ml 680 ml 150 ml 4936 ml IV Total 146 ml 6846 ml Output Urine Total 650 ml 450 ml 275 ml 4625 ml # Voids 3 2 5 23 # Bowel Movements 1 1 Exam Vitals Stable. Laying in bed comfortably, arousable to verbal stimuli, at baseline per medical staff. Lab and Diagnostics Result Diagram: 04/05/17 0250 04/05/17 0250 X-Rays, CTs and MRIs CXR Subtle right basilar airspace disease may represent pneumonia versus atelectasis. Please correlate clinically. Dictated by: Justo Simms M.D. on 03/30/2017 at 14:21 Ankle X-ray 1. Fracture of the distal fibula of uncertain chronicity. Relative absence of soft tissue swelling over the lateral malleolus suggests possible old fracture. Recommend clinical correlation. 2. Fusion of the subtalar joint. 3. Osteopenia. Dictated by: Aniket Jaffe M.D. on 03/30/2017 at 17:40 MRI BRAIN WITHOUT CONTRAST IMPRESSION: 1. No acute intracranial disease process. 2. No areas of acute or chronic infarction. 3. Mild periventricular and subcortical white matter chronic microvascular ischemic changes. 4. Mild, diffuse volume loss. 5. Bilateral maxillary sinus mucosal thickening. Dictated by: Lima Freeman MD, PhD on 03/31/2017 at 10:25 Approved by: Lima Freeman MD, PhD on 03/31/2017 at 10:28 MRA ANGIOGRAM HEAD WITHOUT CONTRAST IMPRESSION: Negative examination. Dictated by: Lima Freeman MD, PhD on 03/31/2017 at 10:28 Approved by: Lima Freeman MD, PhD on 03/31/2017 at 10:30 . Assessment & Plan Transfer to [facility] (3rd floor). Continue to monitor on Telemetry. Continue with medical team's treatment plan. Findings and plan discussed with attending physician. VTE Prophylaxis: Other (Continue home Xarelto) VTE Mechanical Devices: Intermittant Pneumatic CD Resuscitation Status: CPR: Attempt Resuscitation Attending Statement The patient was seen and examined together with Dr. Coyne on 04/05 and I agree with the history, exam and plan as outlined in the note above. Juan Carlos Myrick DO Apr 05, 2017 23:31 Rickie Jo MD Apr 06, 2017 19:54
[2017-04-06] VITALS (8 sets, daily range): BP systolic 107–144; BP diastolic 64–90; PULSE 96–146; RESP 16–21; O2SAT 96–99
--- NOTE | 2017-04-06 00:03 | NUR ---
Transfer Pt transferred to [facility] # [id number]. Report given and care transferred at the bedside to Jasper Barry RN
--- NOTE | 2017-04-06 06:24 | NUR ---
NOC/Impulsive Pt has been impulsive and has been trying to get up by night. Pt states that she's forgetting to use her call light. Bed/laura alarm on. Notified charged nurse for possible sitter due to concerns for safety. Pt's HR has been running on 120's-140's most of the night. Running on A-Fib/A-flutter. MD is aware. Denies chest pain, sob, n/v or abd discomfort. CIWA score throughout the night is 2. Will continue to monitor.
[2017-04-06 06:39] LABS: BASOPHILS % (AUTO) 0.6 % (0-3); EOSINOPHILS % (AUTO) 4.7 % (0-5); MONOCYTES % (AUTO) 16.1 % (4-12); Mean Corpuscular Hemoglobin 36.8 pg (27.0-35.0); Mean Corpuscular Volume 111.3 fL (81-100); NEUTROPHILS % (AUTO) 48.3 % (40-74); Platelet Count 218 bil/L (150-400)
[2017-04-06 06:49] LABS: Magnesium 1.4 mg/dL (1.6-2.6); Phosphorus 4.6 mg/dL (2.5-4.9)
[2017-04-06] MEDS ORDERED: Magnesium Sulf 2 Gm/50mL Water 2 GM in IV Premix 1 EACH IV ONE (07:40)
[2017-04-06] MEDS: Insulin LISPRO 300 Unit/3 mL Inj SUBQ SCH ×4 (08:00→21:24)
[2017-04-06] MEDS: Multivit-Miner-Folic Acid-Iron Tablet PO SCH (10:43)
[2017-04-06] MEDS: Diltiazem CD 300 mg ER24 Capsule PO SCH (10:51)
--- NOTE | 2017-04-06 11:42 | NUR ---
faxed clinicals to George Hankins at [facility], . per George he will likely visit pt after dc. advised PILLOW AGENT.
--- NOTE | 2017-04-06 13:24 | NUR ---
NUTRITION FOLLOW-UP: ASSESS: 67 YO female admitted after being found down with a-flutter with RVR. CIWA protocol in effect. Pt currently has a sitter. PMHx: Right breast calcification, benign colon polyp, post polio syndrome, alcohol abuse and dependence, type 2 diabetes, diet controlled, HTN, possible depression, A-fib with hx of RvR, right hip replacement. DIET: Consistent carbohydrate. PO intake 90-100%. LABS: Reviewed. Glu 107, Mg 1.4, Alb 3.7. MEDICATIONS: Reviewed. GI symptoms / stool: BM x 1 (04/04) ANTHROPOMETRICS: Current Wt: 85.9 kg Admit weight: 88.4 kg IBW: 54.5 kg ESTIMATED NEEDS (CLASS I OBESITY): Calories: 1029-7421 kcal (20-22 kcal/kg BW) Protein: 65-80 g protein (1.2-1.5 g/kg IBW) NUTRITION DIAGNOSIS: 1) Inadequate oral intake related to severe alcohol withdrawal requiring 4 point restraints, as evidenced by inconsistent PO intake--RESOLVED, PO 90-100% of meals. NUTRITIONAL INTERVENTION: 1) No nutritional intervention at this time. MONITOR/EVALUATE: PO intake, labs, GI/nutrition status. Follow per low nutrition risk guidelines.
--- NOTE | 2017-04-06 14:02 | NUR ---
Social Work-continued d/c planning: Data:EMR Reviewed. P tis on day 7 of hospitalization for A-Flutter per H&P. Pt is not medically stable anticipate several more days. PT continues to recommend SNF for pt. BRAN followed up with pt and friend Pam [phone] at bedside to discuss discharge planning, SW Role explained. BRAN explained both [facility] and [facility]. SW explained [facility] is going to come and see pt today. [facility] has also requested to come and see pt. Friend Pam feels that [place] is too far away and would like to take that facility off the list. Friend also requests list of outpt CD resources,which SW has provided. APS report has been made and worker is George Hankins, UR Specialist faxed updated clinicals to him today. Paperwork and PASRR have been completed. SW will continue to follow. Assessment:Pt to benefit from SNF. Plan:1) [facility] to come complete onsite of pt today 2.) [facility] has accepted 3.) [facility] has accepted. [facility] off the list now due to distance per friend. Insurance authorization will need to be obtained prior to discharge. Paperwork and PASRR have been completed. SW will continue to follow. KEON Loya
--- NOTE | 2017-04-06 14:49 | PCM.PNMED ---
Subjective Date of Service Apr 06, 2017 Subjective Denies any new issues/complaints Exam Vital Signs Vital Sign - Last Date Time Temp Pulse Resp B/P Pulse Ox O2 Delivery O2 Flow Rate FiO2 04/06/17 12:00 36.7 108 16 127/81 98 Room Air 04/02/17 08:00 3.00 Intake and Output 04/05/17 04/05/17 04/06/17 Cumulative From/Thru 15:00 23:00 07:00 03/30/17 14:20 - 04/06/17 05:42 Intake Total 770 ml 100 ml 32203 ml Output Total 350 ml 500 ml 5475 ml Balance 420 ml -400 ml 7177 ml Intake Oral 770 ml 100 ml 5806 ml IV Total 6846 ml Output Urine Total 350 ml 500 ml 5475 ml # Voids 1 24 # Bowel Movements 1 General: Alert, Oriented X3, Cooperative, No Acute Distress Head: Normal Eyes: PERRLA, EOMI, Scleral Anicteric Nose: Mucous Membr Moist/[place] Mouth: Mucous Membr Moist/[place] Neck: Supple Chest & Lungs: Chest Wall Normal, Clear to auscultation & percussion Cardiovascular: Regular Rate/Rhythm Pulses: NL carotid, radial, femoral, DP, PT Abdomen: Non-tender, Non-distended, Normoactive bowel tones, Soft Extremities: No cyanosis/clubbing/edma bilat Neurological: Grossly Neurologically Intact, Normal Speech Additional Information: Psych: Calm, appropriate affect IVs and Medications Medications Reviewed: Medications were reviewed in detail Lab and Diagnostics Result Diagram: 04/06/17 0550 04/06/17 0550 X-Rays, CTs and MRIs CXR Subtle right basilar airspace disease may represent pneumonia versus atelectasis. Please correlate clinically. Dictated by: Justo Simms M.D. on 03/30/2017 at 14:21 Ankle X-ray 1. Fracture of the distal fibula of uncertain chronicity. Relative absence of soft tissue swelling over the lateral malleolus suggests possible old fracture. Recommend clinical correlation. 2. Fusion of the subtalar joint. 3. Osteopenia. Dictated by: Aniket Jaffe M.D. on 03/30/2017 at 17:40 MRI BRAIN WITHOUT CONTRAST IMPRESSION: 1. No acute intracranial disease process. 2. No areas of acute or chronic infarction. 3. Mild periventricular and subcortical white matter chronic microvascular ischemic changes. 4. Mild, diffuse volume loss. 5. Bilateral maxillary sinus mucosal thickening. Dictated by: Lima Freeman MD, PhD on 03/31/2017 at 10:25 Approved by: Lima Freeman MD, PhD on 03/31/2017 at 10:28 MRA ANGIOGRAM HEAD WITHOUT CONTRAST IMPRESSION: Negative examination. Dictated by: Lima Freeman MD, PhD on 03/31/2017 at 10:28 Approved by: Lima Freeman MD, PhD on 03/31/2017 at 10:30 . Assessment & Plan 67-year-old female with history of Post polio syndrome, Alcohol abuse and dependence, Diabetes mellitus 2, diet-controlled, Hypertension, Possible depression, A-fib with hx of RvR presented to the emergency department after being found unconscious and found to be in atrial fib with RVR. # Atrial fibrillation with acute RVR and loss of consciousness; present admission; ongoing -Patient has a history of A. fib and outpatient records; found unresponsive after showering at home with heart rate between 180 and 280 -Home meds include 240 mg of diltiazem ER and Xarelto -Patient initially on Diltiazem drip -Converted to PO Diltiazem; gave additional 60mg 04/04/17; increased to diltiazem 300 mg -Continue Xarelto -Unclear if cardiology was consulted by earlier team or not. 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 -CT and MRI negative for stroke -Continue with supportive care # Acute ankle fracture; present on admission; ongoing -Complaints of ankle pain with bruising around the medial and lateral malleolus ; imaging identified distal fibular fracture likely to be chronic -Orthopedics consulted for management of 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 -Patient would likely benefit from placement in a SNF upon DC for continued rehabilitation and PT # Hypertension; present on admission; ongoing -Patient was on lisinopril at home; presents with a blood pressure of 158/84 -Labetalol ordered for SBP greater than 180 -Restarted lisinopril on 03/30/17; we will monitor with diltiazem # Macrocytic anemia with thrombocytosis; present admission; ongoing -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 -B12/folate supplement -Iron and iron binding elevated, likely secondary to chronic alcohol use # Hyperglycemia; present admission; ongoing -Patient has a questionable history of diabetes but most recent A1c was 4.8 in January # Hypomagnesemia; poa; ongoing -Replete and followup # Hyperlipidemia; poa; stable -Continue home atorvastatin # Elevated transaminases; poa; ongoing -likely second to alcohol abuse, especially in the setting on the thrombocytopenia Disposition: Possible SNF in 2-3 days VTE Prophylaxis: Other (Continue home Xarelto) VTE Mechanical Devices: Intermittant Pneumatic CD Resuscitation Status: CPR: Attempt Resuscitation Chris Mulligan Apr 06, 2017 14:49 her primary source of alcohol. Pain Evaluation: Adequate Pain Control VTE Prophylaxis: Other (Continue home Xarelto) VTE Mechanical Devices: Intermittant Pneumatic CD Resuscitation Status: CPR: Attempt Resuscitation VTE Prophylaxis: Other (Continue home Xarelto) VTE Mechanical Devices: Intermittant Pneumatic CD Resuscitation Status: CPR: Attempt Resuscitation Chris Mulligan Apr 06, 2017 14:49
--- NOTE | 2017-04-06 18:44 | NUR ---
Mentation/tele pt alert and able to answer orientation question appropriately. However throughout day pt calling out for people. pt minimally using call. pt referring to staff as family members. Pt requesting to know where "Porfirio" is. pt states he works here. sitter at bedside throughout shift. sitter reports that patient frequently forgetting she is in the hospital. not attempts to get out bed unassisted. Telemetry continues to be A-flutter, hr trending 90s to low 100s. Hr increases to 140-150s with activity and working with PT. will continue to monitor.
[2017-04-07] VITALS (7 sets, daily range): BP systolic 103–129; BP diastolic 61–90; PULSE 81–115; RESP 14–20; O2SAT 95–100
--- NOTE | 2017-04-07 06:20 | NUR ---
Mentation/Sleep Pt rested through most of the night with no complaints of pain or discomfort. Denies SOB, n/v. Alert and oriented. Forgetful/confused at times. Able to respond appropriately to questions and directions. Using call light. Non slip socks and bed alarm on for safety. Call light within reach. Hourly rounding. Continuing to monitor.
[2017-04-07] MEDS: Insulin LISPRO 300 Unit/3 mL Inj SUBQ SCH ×4 (08:00→21:52)
[2017-04-07] MEDS: Multivit-Miner-Folic Acid-Iron Tablet PO SCH (08:19)
[2017-04-07] MEDS: Diltiazem CD 300 mg ER24 Capsule PO SCH (08:19)
--- NOTE | 2017-04-07 10:31 | NUR ---
Spoke with Blanca Levi ppap coordinator at [facility] and she is starting [facility] authorization today. Updated DRUM ATTENDANT
--- NOTE | 2017-04-07 10:38 | NUR ---
Social Work-readiness for discharge: Data:EMR Reviewed. Pt is on day 8 of hospitalization for A flutter per H&P. Pt is not medically stable anticipate tomorrow. SW received a message from pt's friend Pam who states she and pt's brother has spoken and they would like pt to go to [facility] at discharge. UR specialist spoke with [facility] and they are able to accept pt when medically stable. [facility] to start working on authorization. Paperwork in the chart. SW will continue to follow. Assessment:Pt who would benefit from SNF. Plan:Pt to discharge to [facility] with Dr. Harding to follow. [facility] working on insurance authorization. Paperwork in the chart. SW will continue to follow. KEON Loya
--- NOTE | 2017-04-07 13:40 | NUR ---
SW received a call from Blanca at [facility] who states they have obtained insurance authorization from [facility] for admission. [facility] is ready to admit pt when medically stable with Dr. Harding to follow. KEON Loya
--- NOTE | 2017-04-07 15:35 | PCM.PNMED ---
Subjective Date of Service Apr 07, 2017 Subjective Denies any new issues/complaints Exam Vital Signs Vital Sign - Last Date Time Temp Pulse Resp B/P Pulse Ox O2 Delivery O2 Flow Rate FiO2 04/07/17 13:29 36.7 105 19 103/61 100 Room Air 04/02/17 08:00 3.00 Intake and Output 04/06/17 04/06/17 04/07/17 Cumulative From/Thru 15:00 23:00 07:00 03/30/17 14:20 - 04/07/17 06:51 Intake Total 887 ml 600 ml 01992 ml Output Total 300 ml 775 ml 6550 ml Balance 587 ml -175 ml 7589 ml Intake Oral 887 ml 600 ml 7293 ml IV Total 6846 ml Output Urine Total 300 ml 775 ml 6550 ml # Voids 1 3 28 # Bowel Movements 0 0 1 Exam General: Alert, Oriented X3, Cooperative, No Acute Distress Head: Normal Eyes: PERRLA, EOMI, Scleral Anicteric Nose: Mucous Membr Moist/[place] Mouth: Mucous Membr Moist/[place] Neck: Supple Chest & Lungs: Chest Wall Normal, Clear to auscultation bilat Cardiovascular: Regular Rate/Rhythm Abdomen: Non-tender, Non-distended, Normoactive bowel tones, Soft Extremities: No cyanosis/clubbing/edema bilat Neurological: Grossly Neurologically Intact, Normal Speech Additional Information: Psych: Calm, appropriate affect IVs and Medications Medications Reviewed: Medications were reviewed in detail Lab and Diagnostics Result Diagram: 04/06/17 0550 04/06/17 0550 X-Rays, CTs and MRIs CXR Subtle right basilar airspace disease may represent pneumonia versus atelectasis. Please correlate clinically. Dictated by: Justo Simms M.D. on 03/30/2017 at 14:21 Ankle X-ray 1. Fracture of the distal fibula of uncertain chronicity. Relative absence of soft tissue swelling over the lateral malleolus suggests possible old fracture. Recommend clinical correlation. 2. Fusion of the subtalar joint. 3. Osteopenia. Dictated by: Aniket Jaffe M.D. on 03/30/2017 at 17:40 MRI BRAIN WITHOUT CONTRAST IMPRESSION: 1. No acute intracranial disease process. 2. No areas of acute or chronic infarction. 3. Mild periventricular and subcortical white matter chronic microvascular ischemic changes. 4. Mild, diffuse volume loss. 5. Bilateral maxillary sinus mucosal thickening. Dictated by: Lima Freeman MD, PhD on 03/31/2017 at 10:25 Approved by: Lima Freeman MD, PhD on 03/31/2017 at 10:28 MRA ANGIOGRAM HEAD WITHOUT CONTRAST IMPRESSION: Negative examination. Dictated by: Lima Freeman MD, PhD on 03/31/2017 at 10:28 Approved by: Lima Freeman MD, PhD on 03/31/2017 at 10:30 . Assessment & Plan 67-year-old female with history of Post polio syndrome, Alcohol abuse and dependence, Diabetes mellitus 2, diet-controlled, Hypertension, Possible depression, A-fib with hx of RvR presented to the emergency department after being found unconscious and found to be in atrial fib with RVR. # Atrial fibrillation with acute RVR and loss of consciousness; present admission; improved -Patient has a history of A. fib and outpatient records; found unresponsive after showering at home with heart rate between 180 and 280 -Home meds include 240 mg of diltiazem ER and Xarelto -Patient initially on Diltiazem drip -Converted to PO Diltiazem; gave additional 60mg 04/04/17; increased to diltiazem 300 mg -Continue Xarelto # Alcohol abuse with acute withdrawal; present on admission; ongoing -Per roommate; pt drinks half gallon of vodka daily -Completing withdrawal; CIWA protocol used -Alcohol was negative on admit -Thiamine and folate replete -Social work consult for substance abuse # Acute vs Subacute Memory loss; present on admission; ongoing -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 in outpatient records -CT and MRI negative for stroke -Continue with supportive care # Acute ankle fracture; present on admission; ongoing -Complaints of ankle pain with bruising around the medial and lateral malleolus ; imaging identified distal fibular fracture likely to be chronic -Orthopedics consulted for management of 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 -Patient would likely benefit from placement in a SNF upon DC for continued rehabilitation and PT # Hypertension; present on admission; ongoing -Patient was on lisinopril at home; presents with a blood pressure of 158/84 -Labetalol ordered for SBP greater than 180 -Restarted lisinopril on 03/30/17; we will monitor with diltiazem # Macrocytic anemia with thrombocytosis; present admission; ongoing -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 -B12/folate supplement -Iron and iron binding elevated, likely secondary to chronic alcohol use # Hyperglycemia; present admission; ongoing -Patient has a questionable history of diabetes but most recent A1c was 4.8 in January # Hypomagnesemia; poa; ongoing -Replete and followup # Hyperlipidemia; poa; stable -Continue home atorvastatin # Elevated transaminases; poa; ongoing -likely second to alcohol abuse, especially in the setting on the thrombocytopenia Disposition: Possible SNF in 1-2 days VTE Prophylaxis: Other (Continue home Xarelto) VTE Mechanical Devices: Intermittant Pneumatic CD Resuscitation Status: CPR: Attempt Resuscitation Chris Mulligan Apr 07, 2017 15:35
[2017-04-08 01:36] VITALS: BP 130/106; PULSE 116; RESP 19; O2SAT 96
[2017-04-08 01:44] VITALS: BP_SYST 115; BP_SYST 119; BP_DIAS 63; BP_DIAS 74
[2017-04-08 05:30] VITALS: PULSE 99
[2017-04-08 05:31] VITALS: BP 106/71; PULSE 101; RESP 16; O2SAT 100
[2017-04-08 06:36] LABS: Magnesium 1.5 mg/dL (1.6-2.6)
[2017-04-08] MEDS: Insulin LISPRO 300 Unit/3 mL Inj SUBQ SCH ×2 (08:00→11:35)
[2017-04-08] MEDS: Multivit-Miner-Folic Acid-Iron Tablet PO SCH (09:09)
[2017-04-08] MEDS: Diltiazem CD 300 mg ER24 Capsule PO SCH (09:09)
[2017-04-08 09:15] VITALS: BP 132/81; PULSE 68; RESP 18; O2SAT 93
[2017-04-08] MEDS ORDERED: LISI-567 PO (11:33)
[2017-04-08] MEDS ORDERED: Thiamine PO (11:33)
[2017-04-08] MEDS ORDERED: PREN1TAB25 PO (11:33)
[2017-04-08] MEDS ORDERED: ATOR10TA66 PO (11:33)
[2017-04-08] MEDS ORDERED: RIVA10TA PO (11:33)
[2017-04-08] MEDS ORDERED: DILT300C35 PO (11:33)
--- NOTE | 2017-04-08 11:38 | PCM.DIMED ---
Discharge Instructions Date of Service Apr 08, 2017 Dates of Hospitalization Mar 30, 2017 at 19:10 Discharge Diagnosis Discharge Diagnosis # Chronic Atrial fibrillation with acute RVR and loss of consciousness; present admission; improved # Alcohol abuse with acute withdrawal; present on admission. 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 Stable. 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 present on admission. Resolved # Hyperlipidemia. stable # Elevated transaminases; present on admission. Likely chronic and due to alcohol abuse, especially in the setting on the thrombocytopenia Diet Discharge Diet: Low fat, Low Sodium, Heart Healthy Activity Discharge Activity: Other (as tolerated per physical therapy) Call your provider Call your provider for: Fever or Chills Patient Instructions Patient Instructions [id number] left lower extremity. Keep elevated Continue short leg splint PT/OT for mobilization assistance Follow-up plan 1. Followup with primary care provider in about one week 2. Followup with orthopedic surgery () in 2 weeks. Call to setup appointment [address] [id number] Follow-up Provider: Reji Jimenez DO Follow-up with PCP in: 1 week Provider: Isma Ferraro MD Follow-up in: 2 weeks Chris Mulligan Apr 08, 2017 11:38
--- NOTE | 2017-04-08 13:20 | NUR ---
Social Work: Discharge Data: Pt is on day 9 of hospitalization. EMR reviewed. D/C orders are in. UR specialist communicated with [facility], clinicals and orders faxed. Blanca with [facility] called SENIOR COMPENSATION ANALYST, transportation set up via cabulance at 1:45pm today. SENIOR COMPENSATION ANALYST notified RN, pt, and UA. No further d/c planning needs at this time. Pt denies any further need. SENIOR COMPENSATION ANALYST will continue to follow if needs arise. Assessment: Pt who is independent at baseline. Plan: Pt will d/c to [facility] via cabulance today at 1:45pm. SENIOR COMPENSATION ANALYST notified RN, pt, and UA. No further d/c planning needs at this time. Pt denies any further need. SENIOR COMPENSATION ANALYST will continue to follow if needs arise. KEON Talbert
--- NOTE | 2017-04-08 14:50 | NUR ---
Discharge D/C to [facility] via w/c and care-e-me and all belongings. Report called.
--- NOTE | 2017-04-08 17:32 | PCM.DC.MED ---
Discharge Summary Date of Service Apr 08, 2017 Dates of Hospitalization Date of Hospital Admission Mar 30, 2017 at 19:10 Date of Discharge: Apr 08, 2017 Providers: Admitting Physician: Alejandra Reyna DO Primary Care Physician: Reji Jimenez DO Attending Physician: Alejandra Reyna DO Diagnosis at Time of Discharge Diagnosis at Time of Discharge # Chronic Atrial fibrillation with acute RVR and loss of consciousness; present admission; improved # Alcohol abuse with acute withdrawal; present on admission. 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 Stable. 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 present on admission. Resolved # Hyperlipidemia. stable # Elevated transaminases; present on admission. Likely chronic and due to alcohol abuse, especially in the setting on the thrombocytopenia Consultations 1. Ortho (Dr. Ferraro) Procedures XRay, CTs & MRIs CXR Subtle right basilar airspace disease may represent pneumonia versus atelectasis. Please correlate clinically. Dictated by: Justo Simms M.D. on 03/30/2017 at 14:21 Ankle X-ray 1. Fracture of the distal fibula of uncertain chronicity. Relative absence of soft tissue swelling over the lateral malleolus suggests possible old fracture. Recommend clinical correlation. 2. Fusion of the subtalar joint. 3. Osteopenia. Dictated by: Aniket Jaffe M.D. on 03/30/2017 at 17:40 MRI BRAIN WITHOUT CONTRAST IMPRESSION: 1. No acute intracranial disease process. 2. No areas of acute or chronic infarction. 3. Mild periventricular and subcortical white matter chronic microvascular ischemic changes. 4. Mild, diffuse volume loss. 5. Bilateral maxillary sinus mucosal thickening. Dictated by: Lima Freeman MD, PhD on 03/31/2017 at 10:25 Approved by: Lima Freeman MD, PhD on 03/31/2017 at 10:28 MRA ANGIOGRAM HEAD WITHOUT CONTRAST IMPRESSION: Negative examination. Dictated by: Lima Freeman MD, PhD on 03/31/2017 at 10:28 Approved by: Lima Freeman MD, PhD on 03/31/2017 at 10:30 . Brief History As noted in H&P by Dr. Valdivia: 67-year-old female history of atrial fibrillation, postpolio syndrome, and hypertension who was found unresponsive due to ground-level fall around 1400 today. Patient is an unreliable historian. Patient states that her 70 pound dog knocked her over and that she remembers all the events of the fall, EMS arrival, and transport to the hospital, however EMS stated that she was found on the floor after her shower. Patient also states that her ' is one who found her although her does not live with her. Medics administered 4 mg Narcan without response, followed that by 6 mg and then 12 mg of adenosine which allowed EMS to identify a flutter on EKG. Rate at that time was 180-280 bpm. 20 mg of IV diltiazem was given and that brought her heart rate down into the 120s. Patient denies associated review of symptoms. She is unable to recall what season it is, what year it is, where she is, what city she is in, the medications she is taking, who her PCP is, but does remember that Elisabet is the president. Review of home records has a patient being admitted in late January of this year due to A. fib with RVR and was successfully treated with a diltiazem drip and sent home on 240 mg of diltiazem ER. It is unknown she takes medication today and she has not a sufficient historian to confirm this. Her outpatient records also identify her as being on Xarelto due to A. fib although she is a high fall risk due to ambulation issues related to polio. Patient also denied excessive alcohol abuse and interviewed in the emergency department but again, home records indicate that her friends have been concerned about her drinking habits for more than 6 months and report that she consumes more than half of fifth of vodka a day. Hospital Course # Atrial fibrillation with acute RVR and loss of consciousness; present admission; improved -Patient has a history of A. fib and outpatient records; found unresponsive after showering at home with heart rate between 180 and 280 -Home meds include 240 mg of diltiazem ER and Xarelto -Patient initially on Diltiazem drip -Converted to PO Diltiazem; gave additional 60mg 04/04/17; increased to diltiazem 300 mg -Continue Xarelto # Alcohol abuse with acute withdrawal; present on admission; Resolved. 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 in outpatient records -CT and MRI negative for stroke -Continue with supportive care # Acute ankle fracture; present on admission; ongoing -Complaints of ankle pain with bruising around the medial and lateral malleolus ; imaging identified distal fibular fracture likely to be chronic -Orthopedics consulted for management of 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 -Followup with ortho in 2 weeks post discharge # Hypertension; present on admission; ongoing -Patient was on lisinopril at home; presents with a blood pressure of 158/84 -Restarted lisinopril on 03/30/17 # Macrocytic anemia with thrombocytosis; present admission; ongoing -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 -B12/folate supplement -Iron and iron binding elevated, likely secondary to chronic alcohol use # Hyperglycemia; present admission; ongoing -Patient has a questionable history of diabetes but most recent A1c was 4.8 in January # Hypomagnesemia; poa; ongoing -Replete and followup # Hyperlipidemia; poa; stable -Continue home atorvastatin # Elevated transaminases; poa; ongoing -likely second to alcohol abuse, especially in the setting on the thrombocytopenia Exam Vital Signs (Last) Date Time Temp Pulse Resp B/P Pulse Ox O2 Delivery O2 Flow Rate FiO2 04/08/17 09:15 36.5 68 18 132/81 93 Room Air 04/02/17 08:00 3.00 Exam General: Alert, Oriented X3, Cooperative, No Acute Distress Head: Normal Eyes: PERRLA, EOMI, Scleral Anicteric Nose: Mucous Membr Moist/[place] Mouth: Mucous Membr Moist/[place] Neck: Supple Chest & Lungs: Chest Wall Normal, Clear to auscultation bilat Cardiovascular: Regular Rate/Rhythm Abdomen: Non-tender, Non-distended, Normoactive bowel tones, Soft Extremities: No cyanosis/clubbing/edema bilat Neurological: Grossly Neurologically Intact, Normal Speech Psych: Calm, appropriate affect Test 03/30/17 15:25 03/31/17 05:03 04/04/17 02:40 04/05/17 02:50 Hemoglobin A1c 5.4% (4.8-5.6) Iron Level 236ug/dL (35-150) Total Iron Binding Capacity 321ug/dL (250-450) Percent Iron Saturation 74%sat (15-50) Unsaturated Iron Binding 84.8ug/dL Troponin T < 0.010ug/L (0.0-0.011) Triglycerides Level 109mg/dL (0-149) Cholesterol Level 225mg/dL (100-199) LDL Cholesterol, Calculated 107.200mg/dL (0-99) VLDL Cholesterol 21.800mg/dL HDL Cholesterol 96mg/dL (>39) Cholesterol/HDL Ratio 2.34 (0.0-4.4) Vitamin B12 Level 184pg/mL (211-946) Folate 7.6ng/mL (>3.0) Hold [place] Top Tube Received (Received) Alcohols < 10mg/dL (0-10) Thyroid Stimulating Hormone (TSH) 0.769uIU/mL (0.450-4.500) Prothrombin Time 12.9sec (8.1-12.5) Prothromb Time International Ratio 1.20ratio Procalcitonin 0.07ng/mL (0.00-0.08) Test 04/06/17 05:50 04/07/17 15:41 04/08/17 05:55 White Blood Count 5.4th/mm3 (3.8-10.1) Red Blood Count 3.45mil/mm3 (3.90-5.20) Hemoglobin 12.7g/dL (12.0-15.6) Hematocrit 38.4% (35.0-46.0) Mean Corpuscular Volume 111.3fL (81-100) Mean Corpuscular Hemoglobin 36.8pg (27.0-35.0) Mean Corpuscular Hemoglobin Concent 33.1% (32.0-37.0) Red Cell Distribution Width 14.9% (12.3-15.4) Platelet Count 218bil/L (150-400) Neutrophils (%) (Auto) 48.3% (40-74) Lymphocytes (%) (Auto) 29.7% (14-46) Monocytes (%) (Auto) 16.1% (4-12) Eosinophils (%) (Auto) 4.7% (0-5) Basophils (%) (Auto) 0.6% (0-3) Phosphorus Level 4.6mg/dL (2.5-4.9) Hold Urine Received (Received) Sodium Level 142mEq/L (134-144) Potassium Level 4.0mEq/L (3.5-5.2) Chloride Level 107mEq/L (97-108) Carbon Dioxide Level 23mmol/L (18-29) Blood Urea Nitrogen 35mg/dL (8-27) Creatinine 0.80mg/dL (0.57-1.00) Estimat Glomerular Filtration Rate 102mL/min (>59) Glucose Level 108mg/dL (60-99) Calcium Level 9.9mg/dL (8.5-10.1) Magnesium Level 1.5mg/dL (1.6-2.6) Total Bilirubin 0.6mg/dL (0.0-1.2) Aspartate Amino Transf (AST/SGOT) 108U/L (0-50) Alanine Aminotransferase (ALT/SGPT) 86U/L (0-32) Alkaline Phosphatase 92U/L (25-165) Total Protein 6.5g/dL (6.4-8.4) Albumin 3.7g/dL (3.4-5.0) Discharge Medications Discharge Medications ([Thiamine]) 100 MG TABLET 200 MG PO DAILY Prescribed by: CONCHA CARTAGENA MD Aspirin Chew (Aspirin Chew) 81 Mg Chew 81 MG PO DAILY (Reported) Atorvastatin Calcium (Atorvastatin Calcium) 10 Mg Tablet 20 MG PO HS Prescribed by: CONCHA CARTAGENA MD Citalopram (Citalopram) 20 Mg Tablet 20 MG PO DAILY (Reported) Diltiazem ER (Cardizem CD) 300 Mg Cap.er.24h 300 MG PO DAILY Prescribed by: CONCHA CARTAGENA MD Lisinopril (Lisinopril) 20 Mg Tablet 20 MG PO DAILY Prescribed by: CONCHA CARTAGENA MD Vit#96/Ferrous Fum/FA ( Tablet) 1 Each Tablet 1 TABLET PO DAILY Prescribed by: CONCHA CARTAGENA MD Rivaroxaban (Xarelto) 10 Mg Tablet 20 MG PO DAILY@17 Prescribed by: CONCHA CARTAGENA MD Followup Plan Disposition: SNF, [facility] Follow-up plan 1. Followup with primary care provider in about one week 2. Followup with orthopedic surgery () in 2 weeks. Call to setup appointment [address] [address] Discharge Diet: Low fat, Low Sodium, Heart Healthy Discharge Activity: Other (as tolerated per physical therapy) Patient Instructions [id number] left lower extremity. Keep elevated Continue short leg splint PT/OT for mobilization assistance Follow-up Provider: Reji Jimenez DO Follow-up with PCP in: 1 week Provider: Isma Ferraro MD Follow-up in: 2 weeks Time spent 35 min copies to: Reji Jimenez Masoud Apr 08, 2017 17:32
== END 2017-04-08 14:20 | DRG 309 ==
LOC: SED 14:15 → PCC 19:10 → MPC 04-05 23:29
PROVIDERS: ADMIT Neuromusculoskeletal Medicine & OMM; ATTEND Neuromusculoskeletal Medicine & OMM
DX: I48.2 Chronic atrial fibrillation (principal); F10.231 Alcohol dependence with withdrawal delirium; M84.463A Pathological fracture, right fibula, initial encounter for fracture; F10.27 Alcohol dependence with alcohol-induced persisting dementia; D47.3 Essential (hemorrhagic) thrombocythemia; I10 Essential (primary) hypertension; G14 Postpolio syndrome; E83.42 Hypomagnesemia; Z78.1 Physical restraint status; E78.5 Hyperlipidemia, unspecified; E11.65 Type 2 diabetes mellitus with hyperglycemia; Z79.01 Long term (current) use of anticoagulants